=== PATIENT | male | born 1960 | race Caucasian/White ===

== ENCOUNTER 2019-05-12 10:39 | Inpatient (IN) ==
[2019-05-12] MEDS: SODIUM CHLORIDE 0.9% 1000ML 1,000 ML IV SCH ×2 (11:21→19:15)
[2019-05-12] MEDS ORDERED: LORazepam 1 MG/2 ML VIAL IV STA (11:23)
--- NOTE | 2019-05-12 11:35 | XRay Report ---
SINGLE VIEW CHEST CLINICAL HISTORY: Generalized weakness. FINDINGS: An AP, portable, upright chest radiograph is obtained. No prior studies are available for c omparison at the time of dictation. The examination is degraded by portable technique and patient r otation. The patient is status post midline sternotomy and cardiac valve surgery. The heart is enlarg ed noting atherosclerotic calcification of the thoracic aorta. The pulmonary vasculature is nonconges jesus. There is bibasilar atelectasis. No airspace consolidation or large pleural effusion is identifie d. No pneumothorax is seen. The bony thorax is grossly intact. IMPRESSION: Mild cardiomegaly with no active disease in the chest. Electronically signed by: Nabeel St M.D. 05/12/2019 11:33 AM
[2019-05-12 11:41] LABS: INR 1.3 (0.9-1.1); Prothrombin Time 12.8 Seconds (9.0-12.0)
[2019-05-12 11:49] LABS: Alanine Aminotransferase 144 U/L (12-78); Albumin Level 3.9 gm/dl (3.4-5.0); Aspartate Aminotransferase 218 U/L (15-37); BUN Creatinine Ratio 29.4 (10-20); Blood Urea Nitrogen 60 mg/dl (7-18); Calcium 9.6 mg/dl (8.5-10.1); Carbon Dioxide 23 mmol/L (21-32); Chloride 108 mmol/L (98-107); Est GFR (African American) 40.4; Est GFR (Non-African American) 34.9; Glucose 86 mg/dl (70-99); Magnesium 2.3 mg/dl (1.8-2.4); Potassium 4.9 mmol/L (3.5-5.1); Sodium 141 mmol/L (136-145)
[2019-05-12 11:52] LABS: Hematocrit (blood only) 33.3 % (42-52); Hemoglobin 11.4 g/dL (14.0-18.0); Mean Corpuscular Hemoglobin 32.1 pg (25-34); Mean Corpuscular Hgb Conc 34.2 g/dL (32-36); Mean Corpuscular Volume 93.8 fL (80-100); Platelet Count 88 K/uL (130-400); RDW Coefficient of Variation 13.5 % (11.5-14.5); RDW Standard Deviation 46.8 fL (36.4-46.3); Red Blood Count 3.55 M/uL (4.7-6.1); White Blood Count 5.17 K/uL (4.8-10.8)
[2019-05-12 11:53] LABS: Basophils # (auto) 0.01 K/uL (0-0.2); Basophils % (auto) 0.2 %; Eosinophils # (auto) 0.03 K/uL (0-0.5); Eosinophils % (auto) 0.6 %; Immature Granulocytes # (auto) 0.01 K/uL (0.00-0.02); Immature Granulocytes % (auto) 0.2 %; Lymphocytes # (auto) 0.93 K/uL (1.2-3.4); Monocytes # (auto) 0.94 K/uL (0.11-0.59); Monocytes % (auto) 18.2 %; Neutrophils # (auto) 3.25 K/uL (1.4-6.5); Neutrophils % (auto) 62.8 %; Platelet Estimate Decreased (Normal)
[2019-05-12] MEDS ORDERED: SODIUM CHLORIDE 0.9% 1000ML 500 ML IV ONE (11:56)
[2019-05-12 12:00] LABS: Albumin Globulin Ratio 1.1 (0.9-2); Alkaline Phosphatase 120 U/L (45-117); Bilirubin,Total 1.1 mg/dl (0.2-1); Globulin 3.6 gm/dl (2.5-4.0); Total Protein 7.5 gm/dl (6.4-8.2); Troponin I 0.039 ng/ml (0-0.045)
--- NOTE | 2019-05-12 12:13 | CT Scan Report ---
CT head/brain wo con CLINICAL HISTORY: 59 years-old Male presenting with AMS, confusion. TECHNIQUE: Multidetector CT imaging of the head was performed without the use of intravenous contrast . IV contrast: None. One or more dose lowering techniques were used consistent with the principles of ALARA (as low as reasonably achievable), including automatic exposure control, mA or kV adjustment t o individual patient size, and/or use of iterative reconstruction. COMPARISON: None. CT DOSE (mGy.cm): The estimated cumulative dose is 3433.86 mGycm. FINDINGS: [employer] Consultant topogram: Unremarkable. Motion artifact degradation results in mildly decreased diagnostic sensitivity. Ventricles and sulci normal in size. No hemorrhage. Brain parenchyma normal in appearance with preser fili mallory-white differentiation. No acute territorial infarct. No mass effect or midline shift. No ext ra-axial fluid collection. Paranasal sinuses and mastoid air cells clear. Calvarium intact. IMPRESSION: Motion artifact degradation results in mildly decreased diagnostic sensitivity. 1. No acute intracranial abnormality. Electronically signed by: Kj Herbert M.D. 05/12/2019 12:11 PM
[2019-05-12] MEDS ORDERED: LORazepam 0.5 MG/1 ML VIAL IV PRN ×2 (15:26→18:19)
--- NOTE | 2019-05-12 15:31 | History & Physical Report ---
Date of Service May 12, 2019 Assessment & Plan (1) Metabolic encephalopathy: This is a 59-year-old male with a PMH of hep C cirrhosis, liver cancer, CAD (s/p CABG), history of heart valve replacement, bipolar disorder and other medical problems listed below who presents from [facility] with altered mental status since this morning. -Differential includes infection (has received 2 days of Cipro for UTI, hepatic encephalopathy, serotonin syndrome, catatonia -CT head without acute intracranial abnormalities -Afebrile, no leukocytosis. Will stop Cipro and switch to Rocephin. UA, urine culture, blood culture and lactate pending -No known baseline for LFTs. Repeat tomorrow, trend ammonia, continue Lactulose as tolerated -Shivering, confusion, agitation, dilated pupils, muscle rigidity, PVCs concerning for serotonin syndrome. Discussed with psych, who will evaluate the patient today. Also considering catatonia -Recommend symptomatic support with Ativan 0.5mg IV Q6H PRN for agitation as well as holding all psych meds -Continue IV fluids, keep NPO for now until mentation improves, aspiration and fall precautions (2) Bipolar disorder: Likely other underlying psychiatric problems as well but unknown at this time. Patient new to [facility], unable to provide history 2/2 AMS -Holding Haldol, Cogentin and Zoloft for now (3) CAD (coronary artery disease): (4) S/P CABG x 3: Reported history of CABG in 2016, also with reported heart valve replacement -Continue statin. Resume beta judie when tolerating PO -Not on aspirin - will need to further discuss -Paperwork from [facility] states cardiac evaluation is needed (5) Chronic hepatitis C with cirrhosis: (6) Liver cancer: Holding lasix since patient appears clinically dry -Continue lactulose as tolerated -Trend liver panel, INR, ammonia DVT Ppx: SCDs Code status: FULL PCP: CADE Loyd Dispo: Admitted to PCU. Discharge plannnig ordered. Patient seen in collaboration with Dr. Doan. Please see addendum. History of Present Illness Chief Complaint: Altered mental status Primary Care Provider: [facility] [place] This is a 59-year-old male with a PMH of hep C cirrhosis, liver cancer, CAD (s/p CABG), history of heart valve replacement, bipolar disorder and other medical problems listed below who presents from [facility] with altered mental status since this morning. Patient was recently transferred from another alf facility 3 days ago and has seemed confused since. Was evaluated by [facility] and found to have UTI and was started on Cipro yesterday. Ammonia level was 66 at that time. This morning, patient was noted to be less responsive with rigid movements. Was oriented to self but not to time place or situation. Was brought in the ED for further evaluation. History and ROS limited secondary to patient's lethargic state. Per the alf guards at bedside, patient has been mentating similar to this since this morning. After being given 1 mg of IV Ativan in ED, has been more lethargic but still intermittently opens his eyes in response to stimuli, mumbles incoherently and has dystonic movement. Currently afebrile and hemodynamically stable. No electrolyte abnormalities. Creatinine 2.04 (baseline unknown). Ammonia level of 30. Urinalysis, urine tox screen, blood cultures and lactic acid pending. Head CT without any acute intracranial abnormalities. EKG with sinus rhythm with occasional PVCs. Allergies Allergy/AdvReac Type Severity Reaction Status Date / Time No Known Allergies Allergy Unverified 05/12/19 11:58 Home Medications Home Medications Medication Instructions Recorded Confirmed Type atorvastatin 80 mg PO DAILY 05/12/19 05/12/19 History benztropine 2 mg PO HS 05/12/19 05/12/19 History ciprofloxacin HCl [Cipro] 500 mg PO BID 05/12/19 05/12/19 History furosemide [Lasix] 20 mg PO QAM 05/12/19 05/12/19 History haloperidol 10 mg PO HS 05/12/19 05/12/19 History hydroxyzine pamoate 50 mg PO TID PRN 05/12/19 05/12/19 History lactulose 20 g PO BID 05/12/19 05/12/19 History levothyroxine 50 mcg PO DAILY 05/12/19 05/12/19 History meloxicam 15 mg PO DAILY 05/12/19 05/12/19 History metoprolol tartrate 12.5 mg PO BID 05/12/19 05/12/19 History sertraline 50 mg PO DAILY 05/12/19 05/12/19 History Past Med/Surg History Medical History Bipolar disorder (Chronic) CAD (coronary artery disease) (Chronic) Chronic hepatitis C with cirrhosis (Chronic) Liver cancer (Chronic) Surgical History Heart valve replaced S/P CABG x 3 (Chronic) Family History Other Family history unobtainable due to patient's condition Social History Preferred Language: Bahraini Communication Ability Comment: unable to obtain 2/2 patient's altered state Beliefs That Will Affect Care: None Current Living Situation: Other Current Living Situation Comment: alf Feels Safe at Home: Yes Safety Concerns: Feels Safe At This Time Smoking Status: Former smoker Hx Alcohol Use: No Hx Substance Use: No Review of Systems Review of Systems: Unobtainable due to cognitive status Physical Exam Physical Exam: General Appearance: WD/WN, vitals as above, thin, lethargic but intermittently opening eyes and speaking incoherently, shivering, appears thin, chronically ill Head: normocephalic, atraumatic Eyes: pupils dilated with sluggish response to light bilaterally, conjunctivae normal, anicteric sclerae ENT: external ear and nose normal, oropharynx with dry mucous membranes Neck: trachea midline, no thyromegaly normal visual inspection Respiratory: normal respiratory effort, lungs clear to auscultation, no wheeze, rales, rhonchi. Normal insp/exp effort, no accessory muscle use Cardiovascular: regular rate, rhythm, no murmur, normal peripheral pulses. Vessels: no JVD or carotid bruit Chest: normal inspection of chest Abdomen/GI: normal bowel sounds, soft, nontender, no hepatosplenomegaly Extremities/Musculoskelatal: no cyanosis or clubbing, extremities motor strength 5/5 Neurologic: difficult to fully assess due to patient's lethargy and dystonic movements. Moves all extremities spontaneously +rigid body posture Psychiatric: A+O to person, not to time, place or situation. Incoherently sp eaking intermittently Skin: no rashes, normal color, warm/dry Results & Data Vital Signs (Past 12 Hours) Vital Signs Temp Pulse Pulse Resp BP BP Pulse Ox 05/12/19 15:19 76 18 127/86 97 05/12/19 14:31 64 15 99 05/12/19 14:30 64 16 117/75 99 05/12/19 14:15 68 17 122/90 100 05/12/19 14:01 65 16 100 05/12/19 14:00 65 17 113/77 99 05/12/19 13:46 68 18 100 05/12/19 13:45 67 18 120/75 100 05/12/19 13:31 65 15 100 05/12/19 13:30 66 15 106/67 99 05/12/19 13:16 66 16 99 05/12/19 13:15 66 16 103/65 99 05/12/19 13:01 67 16 98 05/12/19 13:00 66 15 103/68 99 05/12/19 12:46 67 17 98 05/12/19 12:45 67 16 101/65 98 05/12/19 12:31 68 19 98 05/12/19 12:30 68 18 102/70 98 05/12/19 12:16 70 17 98 05/12/19 12:15 70 17 115/75 98 05/12/19 12:07 73 21 05/12/19 11:45 73 19 05/12/19 11:30 72 17 113/89 94 05/12/19 11:22 36.9 C 71 18 116/82 100 05/12/19 11:21 70 20 116/82 100 05/12/19 11:15 71 19 96 05/12/19 11:11 100 05/12/19 11:07 74 23 86/68 L 05/12/19 11:03 98 05/12/19 11:01 73 14 90/70 L 05/12/19 11:00 70 21 05/12/19 10:58 70 20 05/12/19 10:45 63 20 101/67 100 Laboratory Results Short CBC 05/12/19 Range/Units 11:20 WBC 5.17 (4.8-10.8) K/uL Hgb 11.4 L (14.0-18.0) g/dL Hct 33.3 L (42-52) % Plt Count 88 L (130-400) K/uL BMP 05/12/19 11:20 Sodium 141 Potassium 4.9 Chloride 108 H Carbon Dioxide 23 BUN 60 H Creatinine 2.04 H Glucose 86 Calcium 9.6 Cardiac Enzymes 05/12/19 Range/Units 11:20 Troponin I 0.039 (0-0.045) ng/ml Liver Function 05/12/19 Range/Units 11:20 Total Bilirubin 1.1 H (0.2-1) mg/dl AST 218 H (15-37) U/L ALT 144 H (12-78) U/L Alkaline Phosphatase 120 H (45-117) U/L Albumin 3.9 (3.4-5.0) gm/dl Urine 05/12/19 Range/Units 15:10 Urine Color Yellow Urine Appearance Clear (Clear) Urine pH 5.0 (4.5-7.5) Ur Specific [place] 1.020 (1.000-1.030) Urine Protein Negative (Negative) Urine Glucose (UA) Negative (Negative) Diagnostic Findings CT head: 1. No acute intracranial abnormality. CXR: IMPRESSION: Mild cardiomegaly with no active disease in the chest. ECG Rhythm: sinus rhythm Findings: + PVC Code Status & VTE Plan VTE Prophylaxis Plan VTE Prophylaxis will be ordered: Yes Supervising Physician Co-Signing Physician Notes Patient is a 59-year-old male with history of hepatitis C, cirrhosis, coronary artery disease, bipolar disorder and other problems presents from [facility] with altered mental status, agitation, dystonic movements. Patient is unable to provide any history secondary to change in mental status. He was recently being treated for urinary tract infection with ciprofloxacin. His ammonia level was [address] head showed no acute findings. Showed thrombocytopenia, anemia, mild elevation of INR 1.3, KIRK with creatinine of 2.04, transaminitis. EKG showed PVCs. Urinalysis showed no signs of UTI but could be partly treated with ciprofloxacin. Currently ammonia levels are within normal limits. On exam patient does lethargic, incoherent speech, chronic ill-appearing, dystonic movements, normocephalic atraumatic, pupils dilated and sluggishly reactive to light, lungs are clear to auscultation, S1-S2, +Murmur, abdomen-voluntary guarding, complete neuro exam could not before performed secondary to altered mental status, Trace pedal edema, grossly moves all extremities. Patient is admitted for management of altered mental status likely secondary to metabolic encephalopathy. DD: Secondary to UTI, medications, hepatic encephalopathy, possibility of serotonin syndrome. Will empirically start on IV Rocephin, IV fluids. Will give Ativan as needed for possible serotonin syndrome. Will consult psychiatry for input. Will hold all antipsychotics/mood stabilizers for now. We will continue lactulose when patient is more awake and able to take p.o. Monitor for platelets, LFTs, INR, renal function. IV fluids to help with KIRK. Aspiration, fall precautions. Consider GI evaluation if LFTs worsen. I personally reviewed the record. Patient is interviewed and examined at bedside. Patient's care is coordinated with Mya Weldon PA-C. Please refer to the documentation above for details of patient's presentation and for discussion of other issues.
[2019-05-12 15:35] LABS: Appearance Urine Clear (Clear); Bilirubin Urine Negative (Negative); Blood Urine Negative (Negative); Color Urine Yellow; Glucose Urine UA Negative (Negative); Ketones Urine Trace (Negative); Leukocyte Esterase Urine Negative (Negative); Nitrite Urine Negative (Negative); Protein Urine Negative (Negative); Urobilinogen Urine Negative (Negative)
--- NOTE | 2019-05-12 15:45 | Psychiatric Consultation ---
Date of Consultation May 12, 2019 Impression / Recommendations Impression 59-year-old male evaluated in the ED after presenting with AMS. Pt is a prisoner at [facility] and was only transferred to their facility in the last 2- 3 days. Limited history is available at this time regarding progression of symptoms or his psychiatric history. Psychiatric consultation was requested to evaluate patient for AMS. Serotonin syndrome was questioned by primary team, and while he has several symptoms (restlessness, confusion, possible hallucinations, and "shivering") these symptoms are somewhat nonspecific and may also be related to other etiology. Fortunately, patient is not demonstrating hypertension, tachycardia, hyperthermia, or other more specific signs of serotonin syndrome or NMS. Agitated catatonia was also considered, though symptoms did not improve after being provided with 1mg of lorazepam in the ED. His symptoms are not presenting as consistent with an acute destabilization of a mood disorder. Medication overdose should be considered on the differential, though it is not clear if the patient would have had access to a surplus of medications at these correctional facilities. His toxicology screening was also positive for MDMA - it is not entirely clear if this may be a false positive, but the possibility of substance use should be considered as well. At this time, delirium/encephalopathy seems the most likely explanation for his symptoms, deferring further work-up and treatment to primary team. Would recommend holding all psychotropic medications until further information on his condition can be obtained. It would likely be suggested to resume medications prior to discharge back to [facility], unless etiology of AMS is related to adverse medication reactions. Seems appropriate to offer lorazepam as needed for acute agitation, while continuing medical work-up for possible medical causes to explain AMS. We will continue to follow patient's case and are available for any additional questions or concerns. Will attempt to gather collateral information regarding the progression of these symptoms. We appreciate the opportunity to participate in the care of this patient. Dr. Rayne Anderson was directly involved in review and discussion of the patient's case and participated in medical decision making regarding treatment recommendations. Psych History Identifying Data Rudolph Barrera is 59-year-old male evaluated in the ED for AMS with concern for serotonin syndrome. He is a prisoner recently transferred to [facility] from [facility] within the past 2-3 days. He reportedly presented as altered from the [facility] facility, but was brought to the ED after AMS worsened. Psychiatric consultation was requested to evaluate patient for possible seroton in syndrome. Pt is unable to provide reliable history of his own, additional information is rather limited presently. Chief Complaint "Well hello there." History of Present Illness Rudolph Barrera is a 59-year-old male evaluated in the ED after presenting from [facility] with reports of AMS. Pt is anticipated to be admitted medically for further work-up and treatment of AMS. Psychiatric consultation was requested to evaluate patient for possible serotonin syndrome. Patient's case and available information was reviewed by consulting provider at time of consult request. It is reported that patient has been altered since his transfer to [facility] from [facility]. Reports of "dystonia, dilated pupils, rigidity, and shivering" were reported, with concern for possible adverse medication reaction. Medication list of haloperidol 10mg qHS, benztropine 2mg qHS, and sertraline 50mg daily was reviewed. It is unclear if there have been any recent changes to his medication. Pt is also being treated for a UTI at this time. Any additional history is rather limited at this time. He was given 1mg of lorazepam in the ED, which reportedly made him "more lethargic." Pt was evaluated by this provider in the ED prior to his transfer to the medical floor. Pt initially presented as alert and pleasant, recognizing this provider's presence in the room and greeting her appropriately. Pt was asked how he is doing, and responded with mumbling and rambling of unintelligible speech. Pt was asked numerous questions, but was unable to provider productive responses. He would ramble while questions were being asked, and later in conversation seemed to be less aware of our conversation. He remained intermittently engaged in our conversation, but was unable to provide any personal history. Limited supplemental information was gathered from the correctional officers present in his room. They state the patient was transferred to their facility from [facility] in the past 2-3 days. He presented to their facility as altered, with no clear history provided to explain this. They report he has been in a private cell, and was placed on suicide watch with q15 minute observation checks after he reported seeing 4 other individuals and his dog in the cell with him. Pt did not verbalize any suicidal or homicidal statements at the facility, and reportedly did not demonstrate any self-harm behaviors. They state the patient would not have had access to large amounts of medication while in their facility, but they cannot speak to how medications were provided at his previous facility. They state that he is being treated for a UTI, but there was also a reported history of " bipolar disorder, and maybe schizophrenia?" Pt is unable to provide any insight regarding his current psychiatric needs or history of treatment/diagnoses. Past Psychiatric History Previous Psych History: No available history presently. It is reported that patient may have a diagnosis of bipolar disorder, but otherwise his psychiatric history is uncertain Current Psychiatric Diagnosis: Possible bipolar disorder Past Medication Trials: 1. Haloperidol 2. Cogentin 3. Zoloft Allergies Allergy/AdvReac Type Severity Reaction Status Date / Time No Known Allergies Allergy Unverified 05/12/19 11:58 Home Medications Home Medications Medication Instructions Recorded Confirmed Type atorvastatin 80 mg PO DAILY 05/12/19 05/12/19 History benztropine 2 mg PO HS 05/12/19 05/12/19 History ciprofloxacin HCl [Cipro] 500 mg PO BID 05/12/19 05/12/19 History furosemide [Lasix] 20 mg PO QAM 05/12/19 05/12/19 History haloperidol 10 mg PO HS 05/12/19 05/12/19 History hydroxyzine pamoate 50 mg PO TID PRN 05/12/19 05/12/19 History lactulose 20 g PO BID 05/12/19 05/12/19 History levothyroxine 50 mcg PO DAILY 05/12/19 05/12/19 History meloxicam 15 mg PO DAILY 05/12/19 05/12/19 History metoprolol tartrate 12.5 mg PO BID 05/12/19 05/12/19 History sertraline 50 mg PO DAILY 05/12/19 05/12/19 History Personal History Living Arrangements: [facility] - recent transfer Patient History Medical History Bipolar disorder (Chronic) CAD (coronary artery disease) (Chronic) Chronic hepatitis C with cirrhosis (Chronic) Liver cancer (Chronic) Surgical History Heart valve replaced S/P CABG x 3 (Chronic) Family History Other Family history unobtainable due to patient's condition Social History Preferred Language: Salvadorean Communication Ability Comment: unable to obtain 2/2 patient's altered state Beliefs That Will Affect Care: None Current Living Situation: Other Current Living Situation Comment: [facility] Feels Safe at Home: Yes Safety Concerns: Feels Safe At This Time Smoking Status: Former smoker Hx Alcohol Use: No Hx Substance Use: No Physical Exam Psychiatric: Orientation: alert (confused and disoriented) Apperance: appropriately dressed (in hospital gown), appropriately groomed and appeared stated age Thin-appearing male observed while laying in bed. Wearing hospital gown. Hair and stanley are short, and white. Level of hygiene appears adequate. Eye Contact: + poor eye contact (brief direct eye contact while alert, eyes closed for majority of visit) Motor Behavior: + tremor (fine tremor observed, with spastic movements of body periodically); + abnormal motor movements Pt is observed while laying in bed. Brief moments of relaxation while appearing calm, alternating with intermittent spastic movements of various body parts. Pt is able to relax body when directed to. No evidence of cogwheel rigidity or sustained dystonia. Pt is observed at times to be reaching for things not present or demonstrating other odd movements, but nothing clearly goal directed in nature. Periodically, patient is observed to be attempting to sit up, but then relaxes himself again. Difficulty adequately assessing reflexes due to spasticity of movements. Speech: + abnormal rate/rhythm/volume of speech (speech is rambling in nature, soft, often unintelligible) Thought Process: + thought process not goal directed (thought process seems disorganized) Thought process difficult to assess given predominantly unintelligible speech Pt appears to be responding to internal stimuli - had reported VH of 4 people and his dog in his cell prior to admission. No current confirmation of A/V hallucinations Insight: + severely impaired insight Judgement: + severely impaired judgement Vital Signs (Past 24 Hours): Last Vital Signs Temp 36.9 C 05/12/19 11:22 Pulse 76 05/12/19 15:19 Resp 18 05/12/19 15:19 BP 127/86 05/12/19 15:19 Pulse Ox 97 05/12/19 15:19 Review of Systems Pt is unable to participate productively with review of systems Results & Data Medications Administered Sodium Chloride (Nss 1000ml) 1,000 mls @ 125 mls/hr IV .Q8H [id number] Stop: 06/11/19 11:14 Last Infusion: 05/12/19 13:02 Dose: 125 mls/hr Documented by: [id number] Infusion: 05/12/19 12:19 Dose: 0 mls/hr Documented by: [id number] Admin: 05/12/19 11:21 Dose: 125 mls/hr Documented by: [id number] Coding Level of Care Code 82550 [facility] Intl Hosp Care Lvl 2
[2019-05-12 16:01] LABS: Amphetamines+Metham, Urine Neg (Neg); Barbiturates, Urine Neg (Neg); Benzodiazepine, Urine Neg (Neg); Cocaine, Urine Neg (Neg); MDMA (Ecstacy), Urine Pos (Neg); Methadone, Urine Neg (Neg); Opiate, Urine Neg (Neg); Phencyclidine, Urine Neg (Neg)
[2019-05-12] MEDS ORDERED: PATIENT'S HEIGHT AND/OR WEIGHT NEEDED SCH (16:45)
--- NOTE | 2019-05-12 18:08 | Emergency Department Note ---
Entered by Pamela Menjivar acting as a scribe for History of Present Illness General Chief complaint: Altered Mental Status Stated complaint: AMS Source: patient and other (Longterm) History of Present Illness Onset (ago): day(s) (3) Location: head (general) Quality: + other (altered mental status) The patient is a 59 year old male who presents to the Emergency Room with complaints of an altered mental status first noticed 3 days ago upon [facility]. The custodial reports the patient was recently started on Cipro in the past 2 days. The custodial reports the patient has a history of Hepatitis C and liver cancer. HPI limited due to altered mental status and limited knowledge of pt by guards present. Home Medications Home Medications Medication Instructions Recorded Confirmed Type atorvastatin 80 mg PO DAILY 05/12/19 05/12/19 History benztropine 2 mg PO HS 05/12/19 05/12/19 History ciprofloxacin HCl [Cipro] 500 mg PO BID 05/12/19 05/12/19 History furosemide [Lasix] 20 mg PO QAM 05/12/19 05/12/19 History haloperidol 10 mg PO HS 05/12/19 05/12/19 History hydroxyzine pamoate 50 mg PO TID PRN 05/12/19 05/12/19 History lactulose 20 g PO BID 05/12/19 05/12/19 History levothyroxine 50 mcg PO DAILY 05/12/19 05/12/19 History meloxicam 15 mg PO DAILY 05/12/19 05/12/19 History metoprolol tartrate 12.5 mg PO BID 05/12/19 05/12/19 History sertraline 50 mg PO DAILY 05/12/19 05/12/19 History Allergies Allergy/AdvReac Type Severity Reaction Status Date / Time No Known Allergies Allergy Unverified 05/12/19 11:58 Past Med/Surg History Medical History Bipolar disorder (Chronic) CAD (coronary artery disease) (Chronic) Chronic hepatitis C with cirrhosis (Chronic) Liver cancer (Chronic) Surgical History Heart valve replaced S/P CABG x 3 (Chronic) Family History Other Family history unobtainable due to patient's condition Social History Preferred Language: French Communication Ability Comment: unable to obtain 2/2 patient's altered state Beliefs That Will Affect Care: None Current Living Situation: Other Current Living Situation Comment: custodial Feels Safe at Home: Yes Safety Concerns: Feels Safe At This Time Smoking Status: Former smoker Hx Alcohol Use: No Hx Substance Use: No Review of Systems Unobtainable due to cognitive status (AMS) Physical Exam Vital Signs Vital Signs - 24 hr 05/12/19 10:45 05/12/19 10:58 05/12/19 11:00 Temperature Temperature Source Pulse Rate 63 70 70 Pulse Rate [Finger] Pulse Rate from SpO2 Sensor Respiratory Rate 20 20 21 Respiratory Effort / Characteristics Blood Pressure 101/67 Blood Pressure [Left Arm] Blood Pressure Mean 78 Blood Pressure Mean [Left Arm] Pulse Oximetry 100 Oxygen Delivery Method Room Air Sepsis Recent Fever Within 48 Hours No Sepsis New/Unexplained Change in Mental Status Yes Sepsis Action Taken by Nursing No Action Required 05/12/19 11:01 05/12/19 11:03 05/12/19 11:07 Temperature Temperature Source Pulse Rate 73 74 Pulse Rate [Finger] Pulse Rate from SpO2 Sensor 72 Respiratory Rate 14 23 Respiratory Effort / Characteristics Blood Pressure 90/70 L 86/68 L Blood Pressure [Left Arm] Blood Pressure Mean 75 70 Blood Pressure Mean [Left Arm] Pulse Oximetry 98 Oxygen Delivery Method Room Air Sepsis Recent Fever Within 48 Hours Sepsis New/Unexplained Change in Mental Status Sepsis Action Taken by Nursing 05/12/19 11:11 05/12/19 11:15 05/12/19 11:21 Temperature Temperature Source Pulse Rate 71 70 Pulse Rate [Finger] Pulse Rate from SpO2 Sensor 71 71 Respiratory Rate 19 20 Respiratory Effort / Characteristics Blood Pressure 116/82 Blood Pressure [Left Arm] Blood Pressure Mean 87 Blood Pressure Mean [Left Arm] Pulse Oximetry 100 96 100 Oxygen Delivery Method Room Air Sepsis Recent Fever Within 48 Hours Sepsis New/Unexplained Change in Mental Status Sepsis Action Taken by Nursing 05/12/19 11:22 05/12/19 11:30 05/12/19 11:45 Temperature 36.9 C Temperature Source Oral Pulse Rate 72 73 Pulse Rate [Finger] 71 Pulse Rate from SpO2 Sensor 70 Respiratory Rate 18 17 19 Respiratory Effort / Characteristics Blood Pressure 113/89 Blood Pressure [Left Arm] 116/82 Blood Pressure Mean 100 Blood Pressure Mean [Left Arm] 93 Pulse Oximetry 100 94 Oxygen Delivery Method Room Air Sepsis Recent Fever Within 48 Hours Sepsis New/Unexplained Change in Mental Status Sepsis Action Taken by Nursing 05/12/19 12:07 05/12/19 12:15 05/12/19 12:16 Temperature Temperature Source Pulse Rate 73 70 70 Pulse Rate [Finger] Pulse Rate from SpO2 Sensor 70 70 Respiratory Rate 21 17 17 Respiratory Effort / Characteristics Blood Pressure 115/75 Blood Pressure [Left Arm] Blood Pressure Mean 89 Blood Pressure Mean [Left Arm] Pulse Oximetry 98 98 Oxygen Delivery Method Sepsis Recent Fever Within 48 Hours Sepsis New/Unexplained Change in Mental Status Sepsis Action Taken by Nursing 05/12/19 12:30 05/12/19 12:31 05/12/19 12:45 Temperature Temperature Source Pulse Rate 68 68 67 Pulse Rate [Finger] Pulse Rate from SpO2 Sensor 68 68 67 Respiratory Rate 18 19 16 Respiratory Effort / Characteristics Blood Pressure 102/70 101/65 Blood Pressure [Left Arm] Blood Pressure Mean 74 74 Blood Pressure Mean [Left Arm] Pulse Oximetry 98 98 98 Oxygen Delivery Method Sepsis Recent Fever Within 48 Hours Sepsis New/Unexplained Change in Mental Status Sepsis Action Taken by Nursing 05/12/19 12:46 05/12/19 13:00 05/12/19 13:01 Temperature Temperature Source Pulse Rate 67 66 67 Pulse Rate [Finger] Pulse Rate from SpO2 Sensor 67 66 67 Respiratory Rate 17 15 16 Respiratory Effort / Characteristics Blood Pressure 103/68 Blood Pressure [Left Arm] Blood Pressure Mean 81 Blood Pressure Mean [Left Arm] Pulse Oximetry 98 99 98 Oxygen Delivery Method Sepsis Recent Fever Within 48 Hours Sepsis New/Unexplained Change in Mental Status Sepsis Action Taken by Nursing 05/12/19 13:15 05/12/19 13:16 05/12/19 13:30 Temperature Temperature Source Pulse Rate 66 66 66 Pulse Rate [Finger] Pulse Rate from SpO2 Sensor 66 66 66 Respiratory Rate 16 16 15 Respiratory Effort / Characteristics Blood Pressure 103/65 106/67 Blood Pressure [Left Arm] Blood Pressure Mean 75 74 Blood Pressure Mean [Left Arm] Pulse Oximetry 99 99 99 Oxygen Delivery Method Sepsis Recent Fever Within 48 Hours Sepsis New/Unexplained Change in Mental Status Sepsis Action Taken by Nursing 05/12/19 13:31 05/12/19 13:45 05/12/19 13:46 Temperature Temperature Source Pulse Rate 65 67 68 Pulse Rate [Finger] Pulse Rate from SpO2 Sensor 65 67 68 Respiratory Rate 15 18 18 Respiratory Effort / Characteristics Blood Pressure 120/75 Blood Pressure [Left Arm] Blood Pressure Mean 84 Blood Pressure Mean [Left Arm] Pulse Oximetry 100 100 100 Oxygen Delivery Method Sepsis Recent Fever Within 48 Hours Sepsis New/Unexplained Change in Mental Status Sepsis Action Taken by Nursing 05/12/19 14:00 05/12/19 14:01 05/12/19 14:15 Temperature Temperature Source Pulse Rate 65 65 68 Pulse Rate [Finger] Pulse Rate from SpO2 Sensor 65 64 67 Respiratory Rate 17 16 17 Respiratory Effort / Characteristics Blood Pressure 113/77 122/90 Blood Pressure [Left Arm] Blood Pressure Mean 90 95 Blood Pressure Mean [Left Arm] Pulse Oximetry 99 100 100 Oxygen Delivery Method Sepsis Recent Fever Within 48 Hours Sepsis New/Unexplained Change in Mental Status Sepsis Action Taken by Nursing 05/12/19 14:30 05/12/19 14:31 05/12/19 15:19 Temperature Temperature Source Pulse Rate 64 64 Pulse Rate [Finger] 76 Pulse Rate from SpO2 Sensor 64 64 Respiratory Rate 16 15 18 Respiratory Effort / Characteristics Non-Labored Blood Pressure 117/75 Blood Pressure [Left Arm] 127/86 Blood Pressure Mean 92 Blood Pressure Mean [Left Arm] 99 Pulse Oximetry 99 99 97 Oxygen Delivery Method Room Air Sepsis Recent Fever Within 48 Hours Sepsis New/Unexplained Change in Mental Status Sepsis Action Taken by Nursing Vital signs reviewed. General: Well-appearing middle-aged male, in no significant distress. HEENT: Dilated pupils bilaterally, 4mm, sluggishly reactive. Dry mucous membranes. No scleral icterus neck supple. Atraumatic. Cardiovascular: Regular rate and rhythm, no extra sounds. Pulmonary: Clear to auscultation bilaterally, normal work of breathing. Abdomen: Soft, nontender, nondistended, positive bowel sounds. Musculoskeletal: Atraumatic, no peripheral edema. Neurologic: Patient awake alert. Hallucinating and grabbing at air; re- directable but unable to follow commands. Full strength in all 4 extremities. Skin: Warm, dry, no rash Course Course 1100: Past medical records reviewed. The patient was evaluated in room C07. A complete history and physical exam was performed. 1407: Upon reevaluation, the patient was resting more comfortably, 1430: Upon reevaluation, I discussed findings and results with the patient and the custodial guards. They verbalized agreement of the treatment plan. I spoke with Dr. Mya Weldon PA-C. The patient will be furthered evaluated [facility] The patient will be evaluated for further management and care. Administered Medications Atorvastatin Calcium (Lipitor) 80 mg PO QAM [facility] Stop: 06/14/19 12:59 Last Admin: 05/15/19 15:04 Dose: 80 mg Documented by: [id number] Furosemide (Lasix) 20 mg PO QAM [facility] Stop: 06/13/19 10:59 Last Admin: 05/15/19 08:54 Dose: Not Given Documented by: [id number] Admin: 05/14/19 11:52 Dose: 20 mg Documented by: [id number] Sodium Chloride (Nss 1000ml) 1,000 mls @ 60 mls/hr IV .[id number] IGNACIO Stop: 06/14/19 13:59 Last Admin: 05/15/19 15:02 Dose: 60 mls/hr Documented by: [id number] Ioversol (Optiray 320 100ml) 94 ml IV ONCE PRN PRN Reason: Interaction Checking Stop: 05/19/19 14:37 Last Admin: 05/15/19 14:38 Dose: 94 ml Documented by: [id number] Ketorolac Tromethamine (Toradol) 15 mg IV Q6H PRN PRN Reason: Pain Stop: 05/20/19 13:54 Last Admin: 05/15/19 15:02 Dose: 15 mg Documented by: [id number] Lactulose (Chronulac) 20 gm PO BID IGNACIO Stop: 06/11/19 20:59 Last Admin: 05/15/19 08:53 Dose: 20 gm Documented by: [id number] Admin: 05/14/19 22:00 Dose: 20 gm Documented by: [id number] Admin: 05/13/19 10:26 Dose: Not Given Documented by: [id number] Admin: 05/12/19 20:10 Dose: Not Given Documented by: [id number] Levothyroxine Sodium (Synthroid) 50 mcg PO DAILYBB [facility] Stop: 06/15/19 06:29 Last Admin: 05/16/19 05:35 Dose: Not Given Documented by: [id number] Metoprolol Tartrate (Lopressor) 12.5 mg PO BID IGNACIO Stop: 06/14/19 12:59 Last Admin: 05/15/19 20:46 Dose: 12.5 mg Documented by: [id number] Admin: 05/15/19 15:04 Dose: 12.5 mg Documented by: [id number] Polyethylene Glycol (Miralax Powder Packet) 17 gm PO Q12 IGNACIO Stop: 06/14/19 15:29 Last Admin: 05/15/19 16:05 Dose: 17 gm Documented by: [id number] Sennosides (Senokot) 8.6 mg PO QAM [facility] Stop: 06/14/19 15:14 Last Admin: 05/15/19 16:06 Dose: 8.6 mg Documented by: [id number] Discontinued Medications Al Hydrox/Mg Hydrox/Simethicone (Maalox) 15 ml PO NOW STA Stop: 05/15/19 12:54 Last Admin: 05/15/19 12:59 Dose: 15 ml Documented by: [id number] Sodium Chloride (Nss 1000ml) 1,000 mls @ 125 mls/hr IV .Q8H IGNACIO Stop: 06/11/19 11:14 Last Admin: 05/13/19 08:19 Dose: Not Given Documented by: [id number] Infusion: 05/13/19 08:19 Dose: 0 mls/hr Documented by: [id number] Infusion: 05/12/19 20:45 Dose: 125 mls/hr Documented by: [id number] Infusion: 05/12/19 20:13 Dose: 0 mls/hr Documented by: [id number] Admin: 05/12/19 19:15 Dose: 125 mls/hr Documented by: [id number] Infusion: 05/12/19 19:15 Dose: 0 mls/hr Documented by: [id number] Infusion: 05/12/19 13:02 Dose: 125 mls/hr Documented by: [id number] Infusion: 05/12/19 12:19 Dose: 0 mls/hr Documented by: [id number] Admin: 05/12/19 11:21 Dose: 125 mls/hr Documented by: [id number] Lorazepam (Ativan) 1 mg in 2 mls @ 2 mls/min IV PRN STA Stop: 05/12/19 11:24 Last Admin: 05/12/19 11:30 Dose: 2 mls/min Documented by: [id number] Sodium Chloride (Nss 1000ml) 500 mls @ 999 mls/hr IV .Q31M ONE Stop: 05/12/19 12:26 Last Infusion: 05/12/19 13:02 Dose: 0 mls/hr Documented by: [id number] Admin: 05/12/19 12:19 Dose: 999 mls/hr Documented by: [id number] Lorazepam (Ativan) 0.5 mg in 1 mls @ 1 mls/min IV Q6H PRN PRN Reason: Agitation Stop: 06/11/19 15:25 Last Admin: 05/12/19 18:04 Dose: 1 mls/min Documented by: [id number] Ceftriaxone Sodium 1,000 mg/ (Dextrose) 50 mls @ 100 mls/hr IV Q24H IGNACIO; Protocol Stop: 05/17/19 17:29 Last Infusion: 05/13/19 16:21 Dose: 0 mls/hr Documented by: [id number] Admin: 05/13/19 16:04 Dose: 100 mls/hr Documented by: [id number] Infusion: 05/12/19 20:45 Dose: 0 mls/hr Documented by: [id number] Admin: 05/12/19 20:13 Dose: 100 mls/hr Documented by: [id number] Sodium Chloride (Nss 1000ml) 1,000 mls @ 80 mls/hr IV .[id number] IGNACIO Stop: 06/12/19 08:14 Last Infusion: 05/14/19 11:09 Dose: 0 mls/hr Documented by: [id number] Admin: 05/14/19 08:03 Dose: 80 mls/hr Documented by: [id number] Infusion: 05/14/19 08:03 Dose: 80 mls/hr Documented by: [id number] Admin: 05/13/19 20:02 Dose: 80 mls/hr Documented by: [id number] Infusion: 05/13/19 20:02 Dose: 80 mls/hr Documented by: [id number] Admin: 05/13/19 08:18 Dose: 80 mls/hr Documented by: [id number] Miscellaneous (Patient's Height And/Or Weight Needed) 1 ea N/A Q2H IGNACIO Stop: 05/12/19 18:46 Last Admin: 05/12/19 19:03 Dose: Not Given Documented by: [id number] Medical Decision Making Differential Diagnosis Differential diagnosis: Etiologies such as metabolic, infection, hypoglycemia, electrolyte abnormalities, cardiac sources, intracerebral event, toxicologic, neurologic, as well as others were entertained. Medical Records Attestation: I reviewed the patient's medical records. Home Medications Current Medication List: was personally reviewed by me Laboratory Data Attestation: I reviewed the patient's lab results. Result diagrams: 05/14/19 06:28 05/15/19 06:44 Lab Results 05/12/19 05/12/19 05/12/19 Range/Units 10:57 11:20 11:20 WBC (4.8-10.8) K/uL RBC (4.7-6.1) M/uL Hgb (14.0-18.0) g/dL Hct (42-52) % MCV (80-100) fL MCH (25-34) pg MCHC (32-36) g/dL RDW Std Deviation (36.4-46.3) fL RDW Coeff of Sue (11.5-14.5) % Plt Count (130-400) K/uL MPV (7.4-10.4) fL Immature Gran % (Auto) % Neut % (Auto) % Lymph % (Auto) % [place] % (Auto) % Eos % (Auto) % Baso % (Auto) % Immature Gran # (Auto) (0.00-0.02) K/uL Neut # (Auto) (1.4-6.5) K/uL Lymph # (Auto) (1.2-3.4) K/uL [place] # (Auto) (0.11-0.59) K/uL Eos # (Auto) (0-0.5) K/uL Baso # (Auto) (0-0.2) K/uL Platelet Estimate (Normal) PT 12.8 H (9.0-12.0) Seconds INR 1.3 H (0.9-1.1) Sodium (136-145) mmol/L Potassium (3.5-5.1) mmol/L Chloride (98-107) mmol/L Carbon Dioxide (21-32) mmol/L Anion Gap (3-11) BUN (7-18) mg/dl Creatinine (0.6-1.4) mg/dl Est Cr Clr Drug Dosing Est GFR ( Amer) Est GFR (Non-Af Amer) BUN/Creatinine Ratio (10-20) Glucose (70-99) mg/dl POC Glucose 128 H (70-99) Lactate 1.3 (0.4-2.0) mmol/L Calcium (8.5-10.1) mg/dl Magnesium (1.8-2.4) mg/dl Total Bilirubin (0.2-1) mg/dl AST (15-37) U/L ALT (12-78) U/L Alkaline Phosphatase (45-117) U/L Ammonia (11-32) umol/L Troponin I (0-0.045) ng/ml Total Protein (6.4-8.2) gm/dl Albumin (3.4-5.0) gm/dl Globulin (2.5-4.0) gm/dl Albumin/Globulin Ratio (0.9-2) TSH (0.300-4.500) uIu/ml Urine Color Urine Appearance (Clear) Urine pH (4.5-7.5) Ur Specific [place] (1.000-1.030) Urine Protein (Negative) Urine Glucose (UA) (Negative) Urine Ketones (Negative) Urine Blood (Negative) Urine Nitrite (Negative) Urine Bilirubin (Negative) Urine Urobilinogen (Negative) Ur Leukocyte Esterase (Negative) Urine Opiates Screen (Neg) Ur Methadone, Qual (Neg) Urine Barbiturates (Neg) Ur Phencyclidine (PCP) (Neg) U Amphetamin/Meth Scrn (Neg) MDMA (Ecstasy) Screen (Neg) U Benzodiazepines Scrn (Neg) Ur Cocaine Metabolite (Neg) U Marijuana (THC) Screen (Neg) 05/12/19 05/12/19 05/12/19 Range/Units 11:20 11:20 11:20 WBC 5.17 (4.8-10.8) K/uL RBC 3.55 L (4.7-6.1) M/uL Hgb 11.4 L (14.0-18.0) g/dL Hct 33.3 L (42-52) % MCV 93.8 (80-100) fL MCH 32.1 (25-34) pg MCHC 34.2 (32-36) g/dL RDW Std Deviation 46.8 H (36.4-46.3) fL RDW Coeff of Sue 13.5 (11.5-14.5) % Plt Count 88 L (130-400) K/uL MPV 11.0 H (7.4-10.4) fL Immature Gran % (Auto) 0.2 % Neut % (Auto) 62.8 % Lymph % (Auto) 18.0 % [place] % (Auto) 18.2 % Eos % (Auto) 0.6 % Baso % (Auto) 0.2 % Immature Gran # (Auto) 0.01 (0.00-0.02) K/uL Neut # (Auto) 3.25 (1.4-6.5) K/uL Lymph # (Auto) 0.93 L (1.2-3.4) K/uL [place] # (Auto) 0.94 H (0.11-0.59) K/uL Eos # (Auto) 0.03 (0-0.5) K/uL Baso # (Auto) 0.01 (0-0.2) K/uL Platelet Estimate Decreased L (Normal) PT (9.0-12.0) Seconds INR (0.9-1.1) Sodium 141 (136-145) mmol/L Potassium 4.9 (3.5-5.1) mmol/L Chloride 108 H (98-107) mmol/L Carbon Dioxide 23 (21-32) mmol/L Anion Gap 10.0 (3-11) BUN 60 H (7-18) mg/dl Creatinine 2.04 H (0.6-1.4) mg/dl Est Cr Clr Drug Dosing Not Reportable Est GFR ( Amer) 40.4 Est GFR (Non-Af Amer) 34.9 BUN/Creatinine Ratio 29.4 H (10-20) Glucose 86 (70-99) mg/dl POC Glucose (70-99) Lactate (0.4-2.0) mmol/L Calcium 9.6 (8.5-10.1) mg/dl Magnesium 2.3 (1.8-2.4) mg/dl Total Bilirubin 1.1 H (0.2-1) mg/dl AST 218 H (15-37) U/L ALT 144 H (12-78) U/L Alkaline Phosphatase 120 H (45-117) U/L Ammonia 30.0 (11-32) umol/L Troponin I 0.039 (0-0.045) ng/ml Total Protein 7.5 (6.4-8.2) gm/dl Albumin 3.9 (3.4-5.0) gm/dl Globulin 3.6 (2.5-4.0) gm/dl Albumin/Globulin Ratio 1.1 (0.9-2) TSH 2.880 (0.300-4.500) uIu/ml Urine Color Urine Appearance (Clear) Urine pH (4.5-7.5) Ur Specific [place] (1.000-1.030) Urine Protein (Negative) Urine Glucose (UA) (Negative) Urine Ketones (Negative) Urine Blood (Negative) Urine Nitrite (Negative) Urine Bilirubin (Negative) Urine Urobilinogen (Negative) Ur Leukocyte Esterase (Negative) Urine Opiates Screen (Neg) Ur Methadone, Qual (Neg) Urine Barbiturates (Neg) Ur Phencyclidine (PCP) (Neg) U Amphetamin/Meth Scrn (Neg) MDMA (Ecstasy) Screen (Neg) U Benzodiazepines Scrn (Neg) Ur Cocaine Metabolite (Neg) U Marijuana (THC) Screen (Neg) 05/12/19 05/12/19 Range/Units 15:10 15:10 WBC (4.8-10.8) K/uL RBC (4.7-6.1) M/uL Hgb (14.0-18.0) g/dL Hct (42-52) % MCV (80-100) fL MCH (25-34) pg MCHC (32-36) g/dL RDW Std Deviation (36.4-46.3) fL RDW Coeff of Sue (11.5-14.5) % Plt Count (130-400) K/uL MPV (7.4-10.4) fL Immature Gran % (Auto) % Neut % (Auto) % Lymph % (Auto) % [place] % (Auto) % Eos % (Auto) % Baso % (Auto) % Immature Gran # (Auto) (0.00-0.02) K/uL Neut # (Auto) (1.4-6.5) K/uL Lymph # (Auto) (1.2-3.4) K/uL [place] # (Auto) (0.11-0.59) K/uL Eos # (Auto) (0-0.5) K/uL Baso # (Auto) (0-0.2) K/uL Platelet Estimate (Normal) PT (9.0-12.0) Seconds INR (0.9-1.1) Sodium (136-145) mmol/L Potassium (3.5-5.1) mmol/L Chloride (98-107) mmol/L Carbon Dioxide (21-32) mmol/L Anion Gap (3-11) BUN (7-18) mg/dl Creatinine (0.6-1.4) mg/dl Est Cr Clr Drug Dosing Est GFR ( Amer) Est GFR (Non-Af Amer) BUN/Creatinine Ratio (10-20) Glucose (70-99) mg/dl POC Glucose (70-99) Lactate (0.4-2.0) mmol/L Calcium (8.5-10.1) mg/dl Magnesium (1.8-2.4) mg/dl Total Bilirubin (0.2-1) mg/dl AST (15-37) U/L ALT (12-78) U/L Alkaline Phosphatase (45-117) U/L Ammonia (11-32) umol/L Troponin I (0-0.045) ng/ml Total Protein (6.4-8.2) gm/dl Albumin (3.4-5.0) gm/dl Globulin (2.5-4.0) gm/dl Albumin/Globulin Ratio (0.9-2) TSH (0.300-4.500) uIu/ml Urine Color Yellow Urine Appearance Clear (Clear) Urine pH 5.0 (4.5-7.5) Ur Specific [place] 1.020 (1.000-1.030) Urine Protein Negative (Negative) Urine Glucose (UA) Negative (Negative) Urine Ketones Trace H (Negative) Urine Blood Negative (Negative) Urine Nitrite Negative (Negative) Urine Bilirubin Negative (Negative) Urine Urobilinogen Negative (Negative) Ur Leukocyte Esterase Negative (Negative) Urine Opiates Screen Neg (Neg) Ur Methadone, Qual Neg (Neg) Urine Barbiturates Neg (Neg) Ur Phencyclidine (PCP) Neg (Neg) U Amphetamin/Meth Scrn Neg (Neg) MDMA (Ecstasy) Screen Pos H (Neg) U Benzodiazepines Scrn Neg (Neg) Ur Cocaine Metabolite Neg (Neg) U Marijuana (THC) Screen Neg (Neg) Imaging Data Radiologist's Impression: Radiology results as stated below per my review and the radiologist's interpretation: CT head/brain wo con CLINICAL HISTORY: 59 years-old Male presenting with AMS, confusion. TECHNIQUE: Multidetector CT imaging of the head was performed without the use of intravenous contrast. IV contrast: None. One or more dose lowering techniques were used consistent with the principles of ALARA (as low as reasonably a chievable), including automatic exposure control, mA or kV adjustment to individual patient size, and/or use of iterative reconstruction. COMPARISON: None. CT DOSE (mGy.cm): The estimated cumulative dose is 3433.86 mGycm. FINDINGS: Senior Cytogenetic Technologist topogram: Unremarkable. Motion artifact degradation results in mildly decreased diagnostic sensitivity. Ventricles and sulci normal in size. No hemorrhage. Brain parenchyma normal in appearance with preserved mallory-white differentiation. No acute territorial infarct. No mass effect or midline shift. No extra-axial fluid collection. Paranasal sinuses and mastoid air cells clear. Calvarium intact. IMPRESSION: Motion artifact degradation results in mildly decreased diagnostic sensitivity. 1. No acute intracranial abnormality. Electronically signed by: Kj Herbert M.D. 05/12/2019 12:11 PM SINGLE VIEW CHEST CLINICAL HISTORY: Generalized weakness. FINDINGS: An AP, portable, upright chest radiograph is obtained. No prior studies are available for comparison at the time of dictation. The examination is degraded by portable technique and patient rotation. The patient is status post midline sternotomy and cardiac valve surgery. The heart is enlarged noting atherosclerotic calcification of the thoracic aorta. The pulmonary vasculature is noncongested. There is bibasilar atelectasis. No airspace consolidation or large pleural effusion is identified. No pneumothorax is seen. The bony thorax is grossly intact. IMPRESSION: Mild cardiomegaly with no active disease in the chest. Electronically signed by: Nabeel St M.D. 05/12/2019 11:33 AM ECG Data Attestation: I personally reviewed and interpreted this ECG as follows: Indication: + altered mental status Rate (beats per minute): 71 Rhythm: + sinus rhythm ECG [place]: + Left axis deviation ECG ST segments: + T-wave inversions (Anterior) ECG Findings: + Other (poor quality baseline for interpretation; ST abnormality in the inferior leads; LVH) Blood Pressure Blood Pressure Findings: Normal blood pressure MDM Narrative This pt was evaluated and appeared to be altered and hallucinating. He did respond to verbal stimuli, but it was incomprehensible. Guards present did not know the pt well as he was transferred from another custodial 3 days prior. Pt was recently dx with UTI and placed on cipro at the custodial, which may be enough to effect the mental status along with multiple other meds. Pt does appear to be anticholinergic clinically. He was hydrated with NSS, given [address] head was performed and is negative. CXR is clear. Lab work reveals a normal WBC and ammonia of 30. Pt was d/w the hospitalist service for further management. Impression & Plan Altered mental status, Polypharmacy, Cirrhosis of liver Discharge Plan Visit Data *Final* Discharge Date/Time: 05/12/19 16:11 Chief Complaint: Altered Mental Status Stated Complaint: AMS ED Provider: Jessica Romero Discharge Problem: Altered mental status, Polypharmacy, Cirrhosis of liver Patient Disposition: Admitted As Inpatient Discharge Instructions Interventions: ED Discharge Assessment Last Done: 05/12/19 16:11 Discharge Problem: Altered mental status Qualifiers: Altered mental status type: unspecified Qualified Code(s): R41.82 - Altered mental status, unspecified Cirrhosis of liver Qualifiers: Hepatic cirrhosis type: unspecified hepatic cirrhosis Ascites presence: unspecified Qualified Code(s): K74.60 - Unspecified cirrhosis of liver The scribe's documentation has been prepared under my direction and personally reviewed by me in its entirety. I confirm that the note above accurately reflects all work, treatment, procedures, and medical decision making performed by me.
[2019-05-12] MEDS: LACTULOSE SYRUP 20 GM/30 ML UDC PO SCH (20:10)
[2019-05-12] MEDS: cefTRIAXone SODIUM 1,000 MG in DEXTROSE 5% 50 ML IV SCH (20:13)
[2019-05-13 07:23] LABS: Hematocrit (blood only) 30.6 % (42-52); Hemoglobin 10.3 g/dL (14.0-18.0); Mean Corpuscular Hgb Conc 33.7 g/dL (32-36); RDW Coefficient of Variation 13.4 % (11.5-14.5); RDW Standard Deviation 46.8 fL (36.4-46.3); Red Blood Count 3.22 M/uL (4.7-6.1)
[2019-05-13 07:32] LABS: INR 1.3 (0.9-1.1); Prothrombin Time 13.5 Seconds (9.0-12.0)
[2019-05-13 07:50] LABS: Mean Platelet Volume 10.4 fL (7.4-10.4); Platelet Count 52 K/uL (130-400)
[2019-05-13 08:05] LABS: Albumin Level 2.9 gm/dl (3.4-5.0); BUN Creatinine Ratio 34.5 (10-20); Calcium 8.3 mg/dl (8.5-10.1); Creatinine Clr Calc Pharmacy 66.1 ml/min; Est GFR (African American) 85.3; Est GFR (Non-African American) 73.6; Potassium 4.4 mmol/L (3.5-5.1); Total Protein 5.9 gm/dl (6.4-8.2)
[2019-05-13] MEDS: SODIUM CHLORIDE 0.9% 1000ML 1,000 ML IV SCH ×3 (08:18→20:02)
[2019-05-13] MEDS: LACTULOSE SYRUP 20 GM/30 ML UDC PO SCH (10:26)
[2019-05-13] MEDS: cefTRIAXone SODIUM 1,000 MG in DEXTROSE 5% 50 ML IV SCH (16:04)
--- NOTE | 2019-05-13 16:12 | Hospitalist Progress Note ---
Date of Service May 13, 2019 Assessment & Plan (1) Metabolic encephalopathy: This is a 59-year-old male with a PMH of hep C cirrhosis, liver cancer, CAD (s/p CABG), history of heart valve replacement, bipolar disorder and other medical problems listed below who presents from [facility] with altered mental status on 05/12/19 -on admission, patient was documented to be seen to be: Shivering, confusion, agitation, dilated pupils, muscle rigidity, and Premature ventricular contractions -patient was started on IV fluids and empirically started on ceftriaxone in case of possible urinary tract infection -since that time patient has less physical agitation symptoms -however in the AM of 05/13/19, patient speaks tangentially; Later in the day, as per nurse, patient became more oriented to place. Nurse was able to ascertain from patient that he had not been having good sleep in several days -at this time, it is unclear what are the organic causes of confusion and initial symptoms -continue telemetry monitoring -concern for serotonin syndrome documented by admitting physician on admission note. However patient does not appear to have classic symptoms of serotonin syndrome on 05/13/19 but this is still a possibility -hepatic encephalopathy can be considered, however ammonia levels are low. -admission urine analysis is normal: empiric ceftriaxone stopped on 05/13/19 -admission blood cultures are pending -no fever to date -admission urine toxicology positive for ecstasy metabolite. however, some psychiatric medications such as Bupropion can have metabolite products that are false positive for ecstasy in urine test (however Bupropion is not part of patient's outpatient medication list) -will continue IV fluids to clear out any potential toxic metabolites, diet as tolerated Elevated creatinine kinase -05/13/19 labs confirms elevated creatinine kinase of 692 U/L, continue IV fluids -trend creatinine kinase -hold statin (2) Bipolar disorder: -patient is recently transferred from out of town correctional facility to the local [facility] correctional facility -Holding Haldol, Cogentin and Zoloft for now -inpatient psychiatry following the patient -ativan prn if agitation Hypothyroidism -outpatient review of medications of Levothyroxine 50 mcg daily suggests history of hypothyroidism -TSH 2.88 is normal on 05/12/19 -since behavior not likely related, will hold off levothyroxine for now until patient mental status improves (3) CAD (coronary artery disease): (4) S/P CABG x 3: Reported history of CABG in 2016, also with reported heart valve replacement -Paperwork from [facility] [facility] states cardiac evaluation is needed -on telemetry monitoring -symptoms of confusion does not appear to be heart related at this time -no reported symptoms of chest pain -holding oral furosemide and oral metoprolol for now -IV metoprolol 5 mg IV prn if heart rate above 110 beats per minute -hold statin because of elevated creatinine kinase (5) Liver cancer: (6) Chronic hepatitis C with cirrhosis: Transaminitis -on admission AST / ALT: 218 / 144 - unclear whether this transaminitis is acute or chronic -trending AST/ALT -INR has been normal -no acute abdominal pain on exam Subjective Patient was seen and examined in AM and in evening. Medical Doctor also received updates from nurse throughout the day. In AM, patient awake but spoke very quickly in a mumbling voice and sometimes was very tangential. He did not appear to be in any acute pain or shortness of breath. Later in the day, as per nurse, patient became more oriented to place. Nurse was able to ascertain from patient that he had not been having good sleep in several days. Patient seen again in late afternoon and continues to be sleeping. Patient on room air. IV fluids running. Continues to have correctional facility officers in his room Review of Systems Review of Systems: All systems reviewed & are unremarkable except as noted in HPI & below Physical Exam Eyes: EOM intact bilaterally ENMT: external ear and nose normal, oropharynx normal Neck: normal visual inspection Respiratory: normal respiratory effort, lungs clear to auscultation Cardiovascular: Rate/Rhythm: regular rate and regular rhythm Gastrointestinal (Abdomen): normal bowel sounds, soft, nontender, no hepatosplenomegaly Musculoskeletal: Head/Neck/Chest: normocephalic and head atraumatic Neurologic: PERRL, EOMI, accommodation nl, no face palsy, no dysarthria Results & Data Vital Signs (Past 12 Hours) Vital Signs Temp Pulse Resp BP Pulse Ox 05/13/19 14:58 36.6 C 63 20 126/85 98 05/13/19 11:17 36.8 C 58 L 22 135/82 98 05/13/19 07:29 36.5 C 71 22 116/72 98
[2019-05-13] MEDS ORDERED: METOPROLOL TARTRATE 1 MG/ML VIAL IV PRN (16:37)
[2019-05-14 06:39] LABS: Hematocrit (blood only) 30.2 % (42-52); Hemoglobin 10.3 g/dL (14.0-18.0); Mean Corpuscular Hemoglobin 32.3 pg (25-34); Mean Corpuscular Hgb Conc 34.1 g/dL (32-36); Mean Corpuscular Volume 94.7 fL (80-100); RDW Coefficient of Variation 13.2 % (11.5-14.5); RDW Standard Deviation 45.7 fL (36.4-46.3); Red Blood Count 3.19 M/uL (4.7-6.1); White Blood Count 3.29 K/uL (4.8-10.8)
[2019-05-14 06:45] LABS: Mean Platelet Volume 9.6 fL (7.4-10.4); Platelet Count 45 K/uL (130-400)
[2019-05-14 07:11] LABS: Albumin Level 2.7 gm/dl (3.4-5.0); BUN Creatinine Ratio 26.4 (10-20); Calcium 8.4 mg/dl (8.5-10.1); Creatinine Clr Calc Pharmacy 72.7 ml/min; Est GFR (African American) 95.7; Est GFR (Non-African American) 82.6; Potassium 4.1 mmol/L (3.5-5.1)
[2019-05-14 07:13] LABS: Albumin Globulin Ratio 0.8 (0.9-2); Bilirubin,Total 0.7 mg/dl (0.2-1); Globulin 3.2 gm/dl (2.5-4.0); Total Protein 5.9 gm/dl (6.4-8.2)
[2019-05-14] MEDS: SODIUM CHLORIDE 0.9% 1000ML 1,000 ML IV SCH (08:03)
--- NOTE | 2019-05-14 10:22 | Psychiatric Progress Note ---
Date of Service May 14, 2019 Impression / Recommendations Impression 59-year-old male evaluated in the ED after presenting with AMS. Pt is a prisoner at [facility] and was only transferred to their facility in the last 2- 3 days. Limited history is available at this time regarding progression of symptoms or his psychiatric history. Psychiatric consultation was requested to evaluate patient for AMS. Serotonin syndrome was questioned by primary team, and while he has several symptoms (restlessness, confusion, possible hallucinations, and "shivering") these symptoms are somewhat nonspecific and may also be related to other etiology. Fortunately, patient is not demonstrating hypertension, tachycardia, hyperthermia, or other more specific signs of serotonin syndrome or NMS. Agitated catatonia was also considered, though symptoms did not improve after being provided with 1mg of lorazepam in the ED. His symptoms are not presenting as consistent with an acute destabilization of a mood disorder. Medication overdose should be considered on the differential, though it is not clear if the patient would have had access to a surplus of medications at these correctional facilities. His toxicology screening was also positive for MDMA - it is not entirely clear if this may be a false positive, but the possibility of substance use should be considered as well. At this time, delirium/encephalopathy seems the most likely explanation for his symptoms, deferring further work-up and treatment to primary team. Would recommend holding all psychotropic medications until further information on his condition can be obtained. It would likely be suggested to resume medications prior to discharge back to [facility], unless etiology of AMS is related to adverse medication reactions. Seems appropriate to offer lorazepam as needed for acute agitation, while continuing medical work-up for possible medical causes to explain AMS. We will continue to follow patient's case and are available for any additional questions or concerns. Will attempt to gather collateral information regarding the progression of these symptoms. We appreciate the opportunity to participate in the care of this patient. 05/14 -We will continue to hold the Haldol, Cogentin, and Zoloft as he appears to be clearing. In absence of manic symptoms and until we can appreciate how long and at what dose he had been on the Haldol I would not reinitiate as it does appear that it could have been contributing to his presenting symptoms. The Zoloft appears to have been a relatively new intervention when he was discontinued from Wellbutrin and, in absence of acute mood symptoms, we will continue to hold (however the Zoloft is certainly less likely to cause acutely altered mental status). -He does not appear manic or depressed and no indication for inpatient psychiatric hospitalization appreciated at this time. Interval History Chief Complaint "I have bipolar disorder". Review of Systems Notes Denies insomnia actively. Subjective Subjective Patient was seen & assessed and interval progress reviewed with treatment team. Patient seen for psychiatric follow-up today. Per floor nursing staff he is appearing a little more alert and oriented today but was still quite confused at times yesterday. We continue to hold his Haldol, Cogentin, and Zoloft. Patient is a poor historian. He seems to believe he has only been on the Haldol for a few days or a few weeks and reports primary indication with sleep. He reports a prior history of bipolar disorder. States he would like to be put back on Seconal. Does not want Seroquel "because it makes me sleep." He is disoriented and gives the year as 2100. He was able to identify the president and refrigeration service inspector. Guards in room report that he is appearing more alert today. No agitation or aggression reported. Physical Exam Psychiatric Orientation: alert and cooperative; + not oriented x 3 Eye Contact: good eye contact Motor Behavior: no psychomotor agitation Speech: no pressured speech Affect: + blunted affect Mood: no depressed mood Thought Process: + concrete thought process; no looseness of associations Hallucinations: no auditory hallucinations, no visual hallucinations and no tactile hallucinations Cognition: + recent memory not intact Insight: + limited insight Judgement: + limited judgement Vital Signs (Past 24 Hours) Last Vital Signs Temp 36.4 C L 05/14/19 03:45 Pulse 63 05/14/19 03:45 Resp 18 05/14/19 03:45 BP 104/67 05/14/19 03:45 Pulse Ox 97 05/14/19 03:45 Results & Data Laboratory Results Laboratory Results - last 24 hr 05/14/19 05/14/19 05/14/19 06:28 06:28 06:28 WBC 3.29 L RBC 3.19 L Hgb 10.3 L Hct 30.2 L MCV 94.7 MCH 32.3 MCHC 34.1 RDW Std Deviation 45.7 RDW Coeff of Sue 13.2 Plt Count 45 L MPV 9.6 Sodium 142 Potassium 4.1 Chloride 115 H Carbon Dioxide 21 Anion Gap 6.0 BUN 26 H Creatinine 1.00 Est Cr Clr Drug Dosing 72.7 Est GFR ( Amer) 95.7 Est GFR (Non-Af Amer) 82.6 BUN/Creatinine Ratio 26.4 H Glucose 94 Calcium 8.4 L Total Bilirubin 0.7 AST 158 H ALT 112 H Alkaline Phosphatase 101 Ammonia 22.0 Total Creatine Kinase 311 H Total Protein 5.9 L Albumin 2.7 L Globulin 3.2 Albumin/Globulin Ratio 0.8 L Current Inpatient Medications Current Inpatient Medications: Current Inpatient Medications Lorazepam (Ativan) 0.5 mg in 1 mls @ 1 mls/min IV Q4H PRN PRN Reason: Agitation Stop: 06/11/19 15:25 Sodium Chloride (Nss 1000ml) 1,000 mls @ 80 mls/hr IV .[id number] [facility], 1928–1983 Stop: 06/12/19 08:14 Last Admin: 05/14/19 08:03 Dose: 80 mls/hr Documented by: Lactulose (Chronulac) 20 gm PO BID FOR[facility], [facility]1983 Stop: 06/11/19 20:59 Last Admin: 05/13/19 10:26 Dose: Not Given Documented by: Metoprolol Tartrate (Lopressor) 5 mg IV Q4H PRN PRN Reason: if heart rate above 110bpm Stop: 06/12/19 16:36
--- NOTE | 2019-05-14 10:51 | Hospitalist Progress Note ---
Date of Service May 14, 2019 Assessment & Plan (1) Metabolic encephalopathy: This is a 59-year-old male with a PMH of hep C cirrhosis, liver cancer, CAD (s/p CABG), history of heart valve replacement, bipolar disorder and other medical problems listed below who presents from [facility] with altered mental status on 05/12/19 -on admission, patient was documented to be seen to be: Shivering, confusion, agitation, dilated pupils, muscle rigidity, and Premature ventricular contractions -patient was started on IV fluids and empirically started on ceftriaxone in case of possible urinary tract infection -since that time patient has less physical agitation symptoms -however in the AM of 05/13/19, patient speaks tangentially; Later in the day, as per nurse, patient became more oriented to place. Nurse was able to ascertain from patient that he had not been having good sleep in several days -at this time, it is unclear what are the organic causes of confusion and initial symptoms -continue telemetry monitoring -concern for serotonin syndrome documented by admitting physician on admission note. However patient does not appear to have classic symptoms of serotonin syndrome on 05/13/19 but this is a possibility -hepatic encephalopathy can be considered, however ammonia levels are low. -admission urine analysis is normal: empiric ceftriaxone stopped on 05/13/19 -admission blood cultures are pending -no fever to date -admission urine toxicology positive for ecstasy metabolite. however, some psychiatric medications such as Bupropion can have metabolite products that are false positive for ecstasy in urine test (Bupropion is not part of patient's outpatient medication list but patient reports he is on Wellbutrin (bupropion) in recent past. Patient denies drug use -patient's mental status generally improved with IV fluids Elevated creatinine kinase -05/13/19 labs confirms elevated creatinine kinase of 692 U/L -with IV fluids, creatinine kinase downtrended to 311 -hold statin (2) Bipolar disorder: -patient is recently transferred from out of town correctional facility to the local [facility] correctional facility -Holding Haldol, Cogentin and Zoloft for now -inpatient psychiatry following the patient -ativan prn if agitation Hypothyroidism -outpatient review of medications of Levothyroxine 50 mcg daily suggests history of hypothyroidism -TSH 2.88 is normal on 05/12/19 -since behavior not likely related, will hold off levothyroxine for now until patient mental status improves (3) CAD (coronary artery disease): (4) S/P CABG x 3: Reported history of CABG in 2016, also with reported heart valve replacement -Paperwork from [employer] states cardiac evaluation is needed -was monitored on telemetry -no reported symptoms of chest pain -will resume home dose furosemide 20 mg daily -hold statin because of elevated creatinine kinase -depending on heart rates, may decide to resume home BID metoprolol tartrate -because of no acute telemetry events to date, he may be transferred to [facility] 05[facility] (5) Liver cancer: -lactulose as tolerated -normal ammonia levels to date. INR levels normal to date (6) Chronic hepatitis C with cirrhosis: Transaminitis -on admission AST / ALT: 218 / 144 - unclear whether this transaminitis is acute or chronic -trending AST/ALT which are elevated above reference range of normal -INR has been normal Subjective Patient seen and examined this AM and today he has been carry prolonged conversation and give some past medical history. Patient denies acute pain. no shortness of breath. breathing on room air. patient oriented to time and place and person Review of Systems Review of Systems: All systems reviewed & are unremarkable except as noted in HPI & below Physical Exam Eyes: EOM intact bilaterally ENMT: external ear and nose normal, oropharynx normal Neck: normal visual inspection Respiratory: normal respiratory effort, lungs clear to auscultation Cardiovascular: Rate/Rhythm: regular rate and regular rhythm Gastrointestinal (Abdomen): normal bowel sounds, soft, nontender, no hepatosplenomegaly Musculoskeletal: Head/Neck/Chest: normocephalic and head atraumatic Neurologic: PERRL, EOMI, accommodation nl, no face palsy, no dysarthria Psychiatric: Orientation: alert, oriented to person, oriented to place, oriented to time and cooperative Results & Data Vital Signs (Past 12 Hours) Vital Signs Temp Pulse Pulse Resp BP BP Pulse Ox 05/14/19 03:45 36.4 C L 63 18 104/67 97 05/13/19 22:52 76 05/13/19 22:50 36.6 C 70 16 117/80 98
[2019-05-14] MEDS: FUROSEMIDE 20 MG TAB PO SCH (11:52)
[2019-05-14] MEDS: LACTULOSE SYRUP 20 GM/30 ML UDC PO SCH (22:00)
[2019-05-15 07:42] LABS: Albumin Level 2.8 gm/dl (3.4-5.0); BUN Creatinine Ratio 18.4 (10-20); Creatinine Clr Calc Pharmacy 75.7 ml/min; Est GFR (African American) 100.6; Est GFR (Non-African American) 86.8
[2019-05-15 07:45] LABS: Albumin Globulin Ratio 0.8 (0.9-2); Bilirubin,Total 0.7 mg/dl (0.2-1); Globulin 3.4 gm/dl (2.5-4.0); Total Protein 6.2 gm/dl (6.4-8.2)
[2019-05-15] MEDS: LACTULOSE SYRUP 20 GM/30 ML UDC PO SCH (08:53)
[2019-05-15] MEDS: FUROSEMIDE 20 MG TAB PO SCH (08:54)
[2019-05-15] MEDS ORDERED: ALUMINUM/MAGNESIUM SUSP 30 ML UDC PO STA (12:53)
[2019-05-15] MEDS ORDERED: ACETAMINOPHEN 325 MG TAB PO PRN (13:46)
[2019-05-15] MEDS ORDERED: KETOROLAC TROMETHAMINE 15 MG/ML VIAL IV PRN (13:55)
--- NOTE | 2019-05-15 13:57 | Hospitalist Progress Note ---
Date of Service May 15, 2019 Assessment & Plan (1) Metabolic encephalopathy: This is a 59-year-old male with a PMH of hep C cirrhosis, liver cancer, CAD (s/p CABG), history of heart valve replacement, bipolar disorder and other medical problems listed below who presents from [facility] with altered mental status on 05/12/19 -on admission, patient was documented to be seen to be: Shivering, confusion, agitation, dilated pupils, muscle rigidity, and Premature ventricular contractions -patient was started on IV fluids and empirically started on ceftriaxone in case of possible urinary tract infection -since that time patient has less physical agitation symptoms -however in the AM of 05/13/19, patient speaks tangentially; Later in the day, as per nurse, patient became more oriented to place. Nurse was able to ascertain from patient that he had not been having good sleep in several days -at this time, it is unclear what are the organic causes of confusion and initial symptoms -continue telemetry monitoring -concern for serotonin syndrome documented by admitting physician on admission note. However patient does not appear to have classic symptoms of serotonin syndrome on 05/13/19 but this is a possibility -hepatic encephalopathy can be considered, however ammonia levels are low. -admission urine analysis is normal: empiric ceftriaxone stopped on 05/13/19 -admission blood cultures are no growth to date -no fever to date -admission urine toxicology positive for ecstasy metabolite. however, some psychiatric medications such as Bupropion can have metabolite products that are false positive for ecstasy in urine test (Bupropion is not part of patient's outpatient medication list but patient reports he is on Wellbutrin (bupropion) in recent past. Patient denies drug use -patient's mental status generally improved with IV fluids during this hospital stay -patient's mental status appears normal and appropriate currently Elevated creatinine kinase -05/13/19 labs confirms elevated creatinine kinase of 692 U/L -with IV fluids, creatinine kinase downtrended to 311 -on oral hydration, the creatinine kinase normalized by 05/15/19 -restart stain on 05/15/19 (2) Bipolar disorder: -patient is recently transferred from out of town correctional facility [facility] -Holding Haldol, Cogentin and Zoloft for now -inpatient psychiatry following the patient. request psychiatry to re-assess Hypothyroidism -outpatient review of medications of Levothyroxine 50 mcg daily suggests history of hypothyroidism -TSH 2.88 is normal on 05/12/19 -can restart levothyroxine on 05/16/19 AM (3) Liver cancer: -lactulose as tolerated -normal ammonia levels to date. INR levels normal to date -patient reports he has stage IV hepatocellular carcinoma -because of abdominal pain as the new acute complaints on 05/15/19, will obtain X ray abdomen and CT scan abdomen/pelvis to clarify the extent of the malignancy (4) Chronic hepatitis C with cirrhosis: Transaminitis -on admission AST / ALT: 218 / 144 - unclear whether this transaminitis is acute or chronic -trending AST/ALT which are elevated above reference range of normal but generally stabilized with AST around 150s and ALT around 110s -INR has been normal -check current Hepatitis status, patient agrees for hepatitis A and B and C labs (5) CAD (coronary artery disease): (6) S/P CABG x 3: Reported history of CABG in 2016, also with reported heart valve replacement -Paperwork from [facility] [facility] states cardiac evaluation is needed -was monitored on telemetry -no reported symptoms of chest pain -will resume home dose furosemide 20 mg daily -resume statin -resume metoprolol tartrate 12.5 mg BID -because of no acute telemetry events to date, he was transferred to [facility] 05[facility]19 DVT prophylaxis: SCDs Subjective Patient's mental status is very good today. At this point in time he is clearly back a normal baseline. However, since he has been more active, he has more complaints of abdomen discomfort. Patient abdomen when sitting up accentuates hepatosplenomegaly. No vomiting. blood pressure and heart rate continues to be stable. Patient mentioned that in the past he was due for MRI abdomen. Will initiate workup with abdomen X ray and abdomen/pelvis CT scan Review of Systems Review of Systems: All systems reviewed & are unremarkable except as noted in HPI & below Physical Exam Eyes: EOM intact bilaterally ENMT: external ear and nose normal, oropharynx normal Neck: normal visual inspection Respiratory: normal respiratory effort, lungs clear to auscultation Cardiovascular: Rate/Rhythm: regular rate and regular rhythm Gastrointestinal (Abdomen): Inspection/Auscultation: normal bowel sounds Percussion/Palpation: + hepatosplenomegaly abdomen is somewhat hard when sitting up Musculoskeletal: Head/Neck/Chest: normocephalic and head atraumatic Neurologic: PERRL, EOMI, accommodation nl, no face palsy, no dysarthria Psychiatric: Orientation: alert, oriented to person, oriented to place, oriented to time and cooperative Results & Data Vital Signs (Past 12 Hours) Vital Signs Temp Pulse Resp BP Pulse Ox 05/15/19 07:21 36.7 C 77 18 112/78 97
--- NOTE | 2019-05-15 14:27 | XRay Report ---
XR KUB/Abdomen 1 view CLINICAL HISTORY: abdominal pain pain. Nausea. COMPARISON STUDY: No previous studies for comparison. FINDINGS: Air-filled nondistended colon. Air-filled small bowel. No evidence for distention. No secondary signs of free air. IMPRESSION: Mild nonobstructive ileus. The above report was generated using voice recognition software. It may contain grammatical, syntax or spelling errors. Electronically signed by: Seth Sams M.D. 05/15/2019 2:26 PM
[2019-05-15] MEDS ORDERED: IOVERSOL 100ml IV PRN (14:38)
--- NOTE | 2019-05-15 14:52 | CT Scan Report ---
CT abd pelvis IV con only CT DOSE: 341.82 mGy.cm HISTORY: Pain liver cancer history, abdominal pain TECHNIQUE: Multiaxial CT images of the abdomen and pelvis were performed following the use of intrave nous contrast. A dose lowering technique was utilized adhering to the principles of ALARA. COMPARISON STUDY: None. FINDINGS: Extremely difficult study to interpret given the patient's history of hepatic carcinoma and treatment at other institutions. No prior studies of a type are available for comparison. There is a patchy parenchymal infiltrate in the right base. Similar but less prominent findings are seen at the left base. There is trace amount pleural fluid at both lung bases. Nodular appearing liver surface suggesting a component of hepatic cirrhosis. Mild abdominal ascites. Moderate gastric distention. The inferior right hepatic lobe contains a 2.5 x 2.0 cm complex nodule. Gallbladder slightly contract ed. Findings consistent with multiple slightly distended somewhat thickened loops of small bowel. Thi s suggests a generalized enteritis. Mild amount of ascites within the paracolic gutters. The colonic bowel pattern is considered nonobstr uctive. No evidence for free air or pneumatosis. The bladder is in the midline. Pelvic ascites is present. Th ere are several nonspecific inguinal nodes. Several para-aortic nodes are also present all less than 1 cm. Left testis is somewhat superiorly positioned. IMPRESSION: 1. Somewhat limited interpretation due to the complete absence of prior studies. 2. Probable hepatic cirrhosis with a 2.5 cm complex nodule at the residual inferior right hepatic lob e. Significance of this nodule is uncertain given lack of prior studies. 3. Abdominal and pelvic ascites considered mild/moderate. 4. Moderate gastric distention. 6. Small bowel enteritis. 7. Several small scattered nodes throughout the abdominal pelvic and inguinal region of uncertain sig nificance The above report was generated using voice recognition software. It may contain grammatical, syntax or spelling errors. Electronically signed by: Seth Sams M.D. 05/15/2019 2:50 PM
[2019-05-15] MEDS: SODIUM CHLORIDE 0.9% 1000ML 1,000 ML IV SCH (15:02)
[2019-05-15] MEDS: ATORVASTATIN 40 MG TAB PO SCH (15:04)
[2019-05-15] MEDS: METOPROLOL TARTRATE 25 MG TAB PO SCH ×2 (15:04→20:46)
[2019-05-15 15:19] LABS: Hepatitis B Surface Antigen Neg (Neg)
[2019-05-15 15:28] LABS: Hepatitis B Surface Ab Quant 11.17 mIU/mL (>or=10mIU/mL Immune); Hepatitis B Surface Antibody Immune
[2019-05-15 16:04] LABS: Act87 Hepatitis C IgG Screen Pos (Neg)
[2019-05-15] MEDS: POLYETHYLENE (MIRALAX) 17 GM PACK PO SCH (16:05)
[2019-05-15] MEDS: SENNA 8.6 MG TAB PO SCH (16:06)
[2019-05-16] MEDS: LEVOTHYROXINE SODIUM 50 MCG TABLET PO SCH (05:35)
[2019-05-16] MEDS: SODIUM CHLORIDE 0.9% 1000ML 1,000 ML IV SCH (06:44)
[2019-05-16 07:37] LABS: Mean Corpuscular Hgb Conc 34.4 g/dL (32-36); Mean Platelet Volume 10.8 fL (7.4-10.4); Platelet Count 68 K/uL (130-400); RDW Coefficient of Variation 13.3 % (11.5-14.5); RDW Standard Deviation 45.8 fL (36.4-46.3); Red Blood Count 3.44 M/uL (4.7-6.1); White Blood Count 4.09 K/uL (4.8-10.8)
[2019-05-16 07:39] LABS: INR 1.3 (0.9-1.1); Partial Thromboplastin Ratio 1.1; Partial Thromboplastin Time 29.5 Seconds (21.0-31.0); Prothrombin Time 13.1 Seconds (9.0-12.0)
[2019-05-16 07:42] LABS: Basophils # (auto) 0.02 K/uL (0-0.2); Basophils % (auto) 0.5 %; Eosinophils % (auto) 4.9 %; Immature Granulocytes # (auto) 0.01 K/uL (0.00-0.02); Immature Granulocytes % (auto) 0.2 %; Monocytes # (auto) 0.66 K/uL (0.11-0.59); Monocytes % (auto) 16.1 %; Neutrophils % (auto) 56.3 %
[2019-05-16 07:49] LABS: Albumin Level 2.6 gm/dl (3.4-5.0); BUN Creatinine Ratio 15.4 (10-20); Calcium 8.2 mg/dl (8.5-10.1); Creatinine Clr Calc Pharmacy 77.3 ml/min; Est GFR (African American) 103.2; Magnesium 1.8 mg/dl (1.8-2.4); Potassium 4.6 mmol/L (3.5-5.1)
[2019-05-16 07:52] LABS: Albumin Globulin Ratio 0.8 (0.9-2); Bilirubin,Total 0.9 mg/dl (0.2-1); Globulin 3.2 gm/dl (2.5-4.0); Total Protein 5.8 gm/dl (6.4-8.2)
[2019-05-16] MEDS ORDERED: MAGNESIUM SULFATE / D5W 1 GM/100 ML BAG IV ONE (08:00)
[2019-05-16] MEDS: SENNA 8.6 MG TAB PO SCH (08:02)
[2019-05-16] MEDS: METOPROLOL TARTRATE 25 MG TAB PO SCH ×2 (08:02→20:16)
[2019-05-16] MEDS: ATORVASTATIN 40 MG TAB PO SCH (08:03)
[2019-05-16] MEDS: MAGNESIUM OXIDE 400 MG TAB PO SCH (08:26)
[2019-05-16] MEDS: RIFAXIMIN 200 MG TABLET PO SCH ×3 (08:26→20:17)
[2019-05-16] MEDS: FUROSEMIDE 20 MG TAB PO SCH (08:27)
[2019-05-16] MEDS: POLYETHYLENE (MIRALAX) 17 GM PACK PO SCH ×2 (08:27→20:19)
--- NOTE | 2019-05-16 10:14 | Psychiatric Progress Note ---
Date of Service May 16, 2019 Impression / Recommendations Impression 59-year-old male evaluated in the ED after presenting with AMS. Pt is a prisoner at [facility] and was only transferred to their facility in the last 2- 3 days. Limited history is available at this time regarding progression of symptoms or his psychiatric history. Psychiatric consultation was requested to evaluate patient for AMS. Serotonin syndrome was questioned by primary team, and while he has several symptoms (restlessness, confusion, possible hallucinations, and "shivering") these symptoms are somewhat nonspecific and may also be related to other etiology. Fortunately, patient is not demonstrating hypertension, tachycardia, hyperthermia, or other more specific signs of serotonin syndrome or NMS. Agitated catatonia was also considered, though symptoms did not improve after being provided with 1mg of lorazepam in the ED. His symptoms are not presenting as consistent with an acute destabilization of a mood disorder. Medication overdose should be considered on the differential, though it is not clear if the patient would have had access to a surplus of medications at these correctional facilities. His toxicology screening was also positive for MDMA - it is not entirely clear if this may be a false positive, but the possibility of substance use should be considered as well. At this time, delirium/encephalopathy seems the most likely explanation for his symptoms, deferring further work-up and treatment to primary team. Would recommend holding all psychotropic medications until further information on his condition can be obtained. It would likely be suggested to resume medications prior to discharge back to [facility], unless etiology of AMS is related to adverse medication reactions. Seems appropriate to offer lorazepam as needed for acute agitation, while continuing medical work-up for possible medical causes to explain AMS. We will continue to follow patient's case and are available for any additional questions or concerns. Will attempt to gather collateral information regarding the progression of these symptoms. We appreciate the opportunity to participate in the care of this patient. 05/14 -We will continue to hold the Haldol, Cogentin, and Zoloft as he appears to be clearing. In absence of manic symptoms and until we can appreciate how long and at what dose he had been on the Haldol I would not reinitiate as it does appear that it could have been contributing to his presenting symptoms. The Zoloft appears to have been a relatively new intervention when he was discontinued from Wellbutrin and, in absence of acute mood symptoms, we will continue to hold (however the Zoloft is certainly less likely to cause acutely altered mental status). -He does not appear manic or depressed and no indication for inpatient psychiatric hospitalization appreciated at this time. 05/16 -At this point mental status has cleared significantly. He still does not endorse compelling symptoms of bipolar disorder historically and does not appear hypomanic,, manic, or mixed such that he would require acute mood stabilization. He should not be restarted on haldol or cogentin and will elect to try to utilize a gently sedating antidepressant instead of restarting the zoloft. He describes a history of depression, anxiety, and sleep disturbance today. We discussed some gentle treatment options and associated risks and benefits. Ultimately he agreed to trial low-dose Remeron and will place an order for 7.5 mg p.o. nightly for sleep augmentation, gentle antidepressant effect, and anxiety. Low-dose will hopefully pose minimal additional burden to his hepatic functioning. He reports h/o vivid dreams on this medication briefly in past which will require monitoring. Guards report patient will have access to alf psychiatrist tomorrow for follow-up. Longitudinally they will need to watch for signs of problematic activation on unopposed antidepressant therapy. Interval History Chief Complaint "I am a little clearer". Review of Systems Notes Denies SI/HI. Complains of unrestful sleep. Denies history of ritualized behaviors Subjective Subjective Psychiatric reassessment requested by primary team as it sounds that he will soon be transferred back to alf. Mental status has cleared significantly in last 2 days. Recommendation requested for psychotropic medications on discharge. Patient reports he has not been treated with antipsychotics longitudinally. He reports only a fairly recent diagnosis of bipolar disorder but describes emotional problems as a younger man. "May be due to trauma?" He recalls being treated with Luvox and Wellbutrin in combination for several years with good effect for mood and "being particular." He reports the Luvox was discontinued due to cost. It appears he was not on any mood stabilizing medication while on that combination. He complains of chronic poor sleep and worries he will get a little "bluesy" off antidepressant. He believes it has been several years since he has been off of an antidepressant. He denies any thoughts of harm to himself or others. Physical Exam Psychiatric Orientation: alert, oriented to time and cooperative Apperance: appeared stated age Eye Contact: good eye contact Motor Behavior: no abnormal motor movements Speech: normal rate/rhythm/volume of speech Affect: euthymic affect ok Thought Process: no thought blocking and no looseness of associations Thought Content: reality based without delusions Suicidal Thoughts: denies suicidal thoughts Homicidal Thoughts: denies homicidal thoughts Hallucinations: no auditory hallucinations and no visual hallucinations (Describes what sounds like some illusory experiences in the hospital but not overtly hallucinatory) Cognition: attention grossly intact Insight: + fair insight Judgement: + fair judgement Vital Signs (Past 24 Hours) Last Vital Signs Temp 37 C 05/16/19 07:38 Pulse 62 05/16/19 07:38 Resp 17 05/16/19 07:38 BP 98/66 L 05/16/19 07:38 Pulse Ox 97 05/16/19 07:38 Results & Data Laboratory Results Laboratory Results - last 24 hr 05/15/19 05/16/19 05/16/19 14:18 07:09 07:09 WBC 4.09 L RBC 3.44 L Hgb 11.0 L Hct 32.0 L MCV 93.0 MCH 32.0 MCHC 34.4 RDW Std Deviation 45.8 RDW Coeff of Sue 13.3 Plt Count 68 L MPV 10.8 H Immature Gran % (Auto) 0.2 Neut % (Auto) 56.3 Lymph % (Auto) 22.0 Bertie % (Auto) 16.1 Eos % (Auto) 4.9 Baso % (Auto) 0.5 Immature Gran # (Auto) 0.01 Neut # (Auto) 2.30 Lymph # (Auto) 0.90 L Bertie # (Auto) 0.66 H Eos # (Auto) 0.20 Baso # (Auto) 0.02 PT 13.1 H INR 1.3 H APTT 29.5 PTT Ratio 1.1 Sodium Potassium Chloride Carbon Dioxide Anion Gap BUN Creatinine Est Cr Clr Drug Dosing Est GFR ( Amer) Est GFR (Non-Af Amer) BUN/Creatinine Ratio Glucose Calcium Magnesium Total Bilirubin AST ALT Alkaline Phosphatase Ammonia Total Creatine Kinase Total Protein Albumin Globulin Albumin/Globulin Ratio Hep Bs Antigen Neg Hep Bs Antibody Immune Hep Bs Antibody, Quant 11.17 Hepatitis C Ab Screen Pos A 05/16/19 05/16/19 07:09 07:09 WBC RBC Hgb Hct MCV MCH MCHC RDW Std Deviation RDW Coeff of Sue Plt Count MPV Immature Gran % (Auto) Neut % (Auto) Lymph % (Auto) Bertie % (Auto) Eos % (Auto) Baso % (Auto) Immature Gran # (Auto) Neut # (Auto) Lymph # (Auto) Bertie # (Auto) Eos # (Auto) Baso # (Auto) PT INR APTT PTT Ratio Sodium 140 Potassium 4.6 Chloride 112 H Carbon Dioxide 23 Anion Gap 5.0 BUN 14 Creatinine 0.94 Est Cr Clr Drug Dosing 77.3 Est GFR ( Amer) 103.2 Est GFR (Non-Af Amer) 89.0 BUN/Creatinine Ratio 15.4 Glucose 89 Calcium 8.2 L Magnesium 1.8 Total Bilirubin 0.9 AST 118 H ALT 100 H Alkaline Phosphatase 99 Ammonia 33.9 H Total Creatine Kinase 114 Total Protein 5.8 L Albumin 2.6 L Globulin 3.2 Albumin/Globulin Ratio 0.8 L Hep Bs Antigen Hep Bs Antibody Hep Bs Antibody, Quant Hepatitis C Ab Screen Current Inpatient Medications Current Inpatient Medications: Current Inpatient Medications Acetaminophen (Tylenol) 325 mg PO ONCE PRN PRN Reason: Pain Stop: 06/14/19 13:45 Atorvastatin Cal[facility]) [facility] [place] [place]: 06/14/19 12:59 Last Admin: 05/16/19 08:03 Dose: 80 mg Documented by: Furosemide (Lasix) 20 mg PO QAM [facility] Stop: 06/13/19 10:59 Last Admin: 05/16/19 08:27 Dose: Not Given Documented by: Ioversol (Optiray 320 100ml) 94 ml IV ONCE PRN PRN Reason: Interaction Checking Stop: 05/19/19 14:37 Last Admin: 05/15/19 14:38 Dose: 94 ml Documented by: Ketorolac Tromethamine (Toradol) 15 mg IV Q6H PRN PRN Reason: Pain Stop: 05/20/19 13:54 Last Admin: 05/15/19 15:02 Dose: 15 mg Documented by: Lactulose (Chronulac) 20 gm PO BID [facility] Stop: 06/11/19 20:59 Last Admin: 05/15/19 08:53 Dose: 20 gm Documented by: Levothyroxine Sodium (Synthroid) 50 mcg PO DAILYBB [facility] Stop: 06/15/19 06:29 Last Admin: 05/16/19 05:35 Dose: Not Given Documented by: Magnesium Oxide (Mag-Ox) 400 mg PO QAM [facility] Stop: 06/15/19 08:59 Last Admin: 05/16/19 08:26 Dose: 400 mg Documented by: Metoprolol Tartrate (Lopressor) 12.5 mg PO BID [facility] Stop: 06/14/19 12:59 Last Admin: 05/16/19 08:02 Dose: Not Given Documented by: Polyethylene Glycol (Miralax Powder Packet) 17 gm PO Q12 [facility] Stop: 06/14/19 15:29 Last Admin: 05/16/19 08:27 Dose: Not Given Documented by: Rifaximin (Xifaxan) 200 mg PO TID [facility] Stop: 06/15/19 08:59 Last Admin: 05/16/19 08:26 Dose: 200 mg Documented by: Sennosides (Senokot) 8.6 mg PO QAM [facility] Stop: 06/14/19 15:14 Last Admin: 05/16/19 08:02 Dose: 8.6 mg Documented by:
--- NOTE | 2019-05-16 16:26 | Hospitalist Progress Note ---
Date of Service May 16, 2019 Assessment & Plan (1) Metabolic encephalopathy: This is a 59-year-old male with a PMH of hep C cirrhosis, liver cancer, CAD (s/p CABG), history of heart valve replacement, bipolar disorder and other medical problems listed below who presents from [facility] with altered mental status on 05/12/19 (patient is recently transferred from [facility] to the local [facility] on 05/06/19. (This [facility] with [facility] [phone] and further review of outpatient documents with hospital vocational case manager) -on admission, patient was documented to be seen to be: Shivering, confusion, agitation, dilated pupils, muscle rigidity, and Premature ventricular contractions -patient was started on IV fluids and empirically started on ceftriaxone in case of possible urinary tract infection -since that time patient has less physical agitation symptoms -however in the AM of 05/13/19, patient speaks tangentially; Later in the day, as per nurse, patient became more oriented to place. Nurse was able to ascertain from patient that he had not been having good sleep in several days -at this time, it is unclear what are the organic causes of confusion and initial symptoms -continue telemetry monitoring -concern for serotonin syndrome documented by admitting physician on admission note. However patient does not appear to have classic symptoms of serotonin syndrome on 05/13/19 -hepatic encephalopathy can be considered, however ammonia levels are low. -admission urine analysis is normal: empiric ceftriaxone stopped on 05/13/19 -admission blood cultures are no growth to date -no fever to date -admission urine toxicology positive for ecstasy metabolite. however, some psychiatric medications such as Bupropion can have metabolite products that are false positive for ecstasy in urine test (Bupropion is not part of patient's outpatient medication list but patient reports he is on Wellbutrin (bupropion) in recent past. Patient denies drug use -patient's mental status generally improved with IV fluids during this hospital stay -patient's mental status appears normal and appropriate currently Elevated creatinine kinase -05/13/19 labs confirms elevated creatinine kinase of 692 U/L -with IV fluids, creatinine kinase downtrended to 311 -on oral hydration, the creatinine kinase normalized by 05/15/19 -restart statin on 05/15/19 (2) Bipolar disorder: reported history of Bipolar disorder -attempts to verify patient's outpatient psychiatric medications; (patient did not get any Haldol, Cogentin and Zoloft as inpatient) -as of inpatient psychiatry, patient may be started on trial of low-dose Remeron, 7.5 mg p.o. nightly, for sleep augmentation, gentle antidepressant effect, and anxiety. start this medication on 05/16/19 -discussed with [facility] nurse on 05/16/19, that the psychiatry doctor at the correctional facility will resume work duties on Friday05/17/19 and plans to discharge patient to correctional facility on 05/17/19 if no acute events Hypothyroidism -outpatient review of medications of Levothyroxine 50 mcg daily suggests history of hypothyroidism -TSH 2.88 is normal on 05/12/19 -restart levothyroxine on 05/16/19 AM (3) Liver cancer: -lactulose as tolerated -normal ammonia levels to date. INR levels normal to date -patient reports he has stage IV cirrhosis and that liver cancer is not metastatic -because of abdominal pain as the new acute complaints on 05/15/19, X ray abdomen and CT scan abdomen/pelvis were ordered. CT abdomen 1. Somewhat limited interpretation due to the complete absence of prior studies. 2. Probable hepatic cirrhosis with a 2.5 cm complex nodule at the residual inferior right hepatic lobe. Significance of this nodule is uncertain given lack of prior studies. 3. Abdominal and pelvic ascites considered mild/moderate. 4. Moderate gastric distention. 6. Small bowel enteritis. 7. Several small scattered nodes throughout the abdominal pelvic and inguinal region of uncertain significance -lactulose was changed to rifaximin and increased bowel movement medications were ordered on 05/15/19 to help patient pass the gas and make more bowel movement; continue (4) Chronic hepatitis C with cirrhosis: Transaminitis -on admission AST / ALT: 218 / 144 - unclear whether this transaminitis is acute or chronic -trending AST/ALT which are elevated above reference range of normal but generally stabilized with AST around 150s and ALT around 110s -INR has been normal -checked current Hepatitis status as hepatitis C positive (5) CAD (coronary artery disease): (6) S/P CABG x 3: Reported history of CABG in 2016, also with reported heart valve replacement -Paperwork from correctional facility states cardiac evaluation is needed -was monitored on telemetry; because of no acute telemetry events found, he was transferred [facility] -no reported symptoms of chest pain -continue furosemide 20 mg daily -continue statin -continue metoprolol tartrate 12.5 mg BID DVT prophylaxis: SCDs Subjective Patient passing more flatus today. he reports abdomen feels less uncomfortable. no vomiting. no chest pain. no shortness of breath. results of current workup discussed with patient and he reports that he has diagnosis of stage IV cirrhosis and not stage IV liver cancer. He does acknowledge liver cancer presence in past workups but denies history of metastasis Review of Systems Review of Systems: All systems reviewed & are unremarkable except as noted in HPI & below Physical Exam Eyes: EOM intact bilaterally ENMT: external ear and nose normal, oropharynx normal Neck: normal visual inspection Respiratory: normal respiratory effort, lungs clear to auscultation Cardiovascular: Rate/Rhythm: regular rate and regular rhythm Gastrointestinal (Abdomen): Inspection/Auscultation: normal bowel sounds Percussion/Palpation: + hepatomegaly Musculoskeletal: Head/Neck/Chest: normocephalic and head atraumatic Neurologic: PERRL, EOMI, accommodation nl, no face palsy, no dysarthria Psychiatric: Orientation: alert, oriented to person, oriented to place, oriented to time and cooperative Results & Data Vital Signs (Past 12 Hours) Vital Signs Temp Pulse Resp BP Pulse Ox 05/16/19 15:52 36.7 C 60 18 116/75 99 05/16/19 07:38 37 C 62 17 98/66 L 97
[2019-05-16] MEDS ORDERED: MIRTAZAPINE TAB 15 MG TAB PO SCH (21:00)
--- NOTE | 2019-05-16 21:20 | XRay Report ---
XR KUB/Abdomen 1 view CLINICAL HISTORY: ABDOMINAL PAIN, DISTENSION COMPARISON STUDY: 05/15/2019 FINDINGS: There is mild gaseous prominence of the colon similar to the preceding study. There is a mi ld to moderate amount stool within the rectal vault. There is no conventional radiographic evidence o f high-grade bowel obstruction. IMPRESSION: Mild gaseous prominence of the colon. No conventional radiographic evidence of bowel obs truction Electronically signed by: Damián Munoz M.D. 05/16/2019 9:18 PM
[2019-05-16] MEDS ORDERED: ALUMINUM/MAGNESIUM/SIMETH (MAALOX MAX) 30 ML UDC PO STA (23:02)
[2019-05-17] MEDS: LEVOTHYROXINE SODIUM 50 MCG TABLET PO SCH (06:02)
[2019-05-17 07:23] VITALS: BP 133/88; TEMP 97.7; O2SAT 97
[2019-05-17 08:15] VITALS: PULSE 64
[2019-05-17] MEDS: FUROSEMIDE 20 MG TAB PO SCH (08:17)
[2019-05-17] MEDS: POLYETHYLENE (MIRALAX) 17 GM PACK PO SCH (08:17)
[2019-05-17] MEDS: RIFAXIMIN 200 MG TABLET PO SCH (08:17)
[2019-05-17] MEDS: SENNA 8.6 MG TAB PO SCH (08:18)
[2019-05-17] MEDS: METOPROLOL TARTRATE 25 MG TAB PO SCH (08:18)
[2019-05-17] MEDS: ATORVASTATIN 40 MG TAB PO SCH (08:19)
[2019-05-17] MEDS: MAGNESIUM OXIDE 400 MG TAB PO SCH (08:19)
--- NOTE | 2019-05-17 11:20 | Hospitalist Progress Note ---
Date of Service May 17, 2019 Assessment & Plan (1) Metabolic encephalopathy: Metabolic encephalopathy (altered mental status, polypharmacy is suspected) This is a 59-year-old male with a PMH of hep C cirrhosis, liver cancer, CAD (s/p CABG), history of heart valve replacement, bipolar disorder and other medical problems listed below who presents from [facility] with altered mental status on 05/12/19 (patient is recently transferred from [facility] to the local [facility] on 05/06/19. (This was verified with correctional facility [phone] and further review of outpatient documents with hospital manager case management) -on admission, patient was documented to be seen to be: Shivering, confusion, agitation, dilated pupils, muscle rigidity, and Premature ventricular contractions -patient was started on IV fluids and empirically started on ceftriaxone in case of possible urinary tract infection -since that time patient has less physical agitation symptoms -however in the AM of 05/13/19, patient speaks tangentially; Later in the day, as per nurse, patient became more oriented to place. Nurse was able to ascertain from patient that he had not been having good sleep in several days -at this time, it is unclear what are the organic causes of confusion and initial symptoms -continue telemetry monitoring -concern for serotonin syndrome documented by admitting physician on admission note. However patient does not appear to have classic symptoms of serotonin syndrome on 05/13/19 -hepatic encephalopathy can be considered, however ammonia levels are low. -admission urine analysis is normal: empiric ceftriaxone stopped on 05/13/19 -admission blood cultures are no growth to date -no fever to date -admission urine toxicology positive for ecstasy metabolite. however, some psychiatric medications such as Bupropion can have metabolite products that are false positive for ecstasy in urine test (Bupropion is not part of patient's outpatient medication list but patient reports he is on Wellbutrin (bupropion) in recent past. Patient denies drug use -patient's mental status generally improved with IV fluids during this hospital stay -patient's mental status appears normal and appropriate currently Elevated creatinine kinase (resolved) -05/13/19 labs confirms elevated creatinine kinase of 692 U/L -with IV fluids, creatinine kinase downtrended to 311 -on oral hydration, the creatinine kinase normalized by 05/15/19 -restart statin on 05/15/19 (2) Bipolar disorder: reported history of Bipolar disorder -attempts to verify patient's outpatient psychiatric medications; (patient did not get any Haldol, Cogentin and Zoloft as inpatient) -as of inpatient psychiatry, patient may be started on trial of low-dose Remeron, 7.5 mg p.o. nightly, for sleep augmentation, gentle antidepressant effect, and anxiety. start this medication on 05/16/19 -discussed with [facility] nurse on 05/16/19, that the psychiatry doctor at the correctional facility will resume work duties on Friday05/17/19 and plans to discharge patient to correctional facility on 05/17/19 if no acute events Hypothyroidism -outpatient review of medications of Levothyroxine 50 mcg daily suggests history of hypothyroidism -TSH 2.88 is normal on 05/12/19 -restart levothyroxine 50 mcg daily on 05/16/19 AM (3) Liver cancer: -lactulose as tolerated -normal ammonia levels to date. INR levels normal to date -patient reports he has stage IV cirrhosis and that liver cancer is not metastatic -because of abdominal pain as the new acute complaints on 05/15/19, X ray abdomen and CT scan abdomen/pelvis were ordered. CT abdomen 1. Somewhat limited interpretation due to the complete absence of prior studies. 2. Probable hepatic cirrhosis with a 2.5 cm complex nodule at the residual inferior right hepatic lobe. Significance of this nodule is uncertain given lack of prior studies. 3. Abdominal and pelvic ascites considered mild/moderate. 4. Moderate gastric distention. 6. Small bowel enteritis. 7. Several small scattered nodes throughout the abdominal pelvic and inguinal region of uncertain significance -lactulose was changed to rifaximin and increased bowel movement medications were ordered on 05/15/19 to help patient pass the gas and make more bowel movement; continue (4) Chronic hepatitis C with cirrhosis: Transaminitis -on admission AST / ALT: 218 / 144 - unclear whether this transaminitis is acute or chronic -trending AST/ALT which are elevated above reference range of normal but generally stabilized with AST around 150s and ALT around 110s -INR has been normal -checked current Hepatitis status as hepatitis C positive (5) CAD (coronary artery disease): (6) S/P CABG x 3: Reported history of CABG in 2016, also with reported heart valve replacement -Paperwork from correctional facility states cardiac evaluation is needed -was monitored on telemetry; because of no acute telemetry events found, he was transferred to [facility] 05/[facility] -no reported symptoms of chest pain -continue furosemide 20 mg daily -continue statin -continue metoprolol tartrate 12.5 mg BID based on inpatient heart rates Disposition: Patient was evaluated in the hospital for metabolic encephalopathy (altered mental status). acute etiology of altered mental status is unclear. There may be a role of polypharmacy on review of patient's prior hospitalization medications. Patient to be discharge to correctional facility [facility]. Patient will have imaging on CD of abdomen imaging in regards to liver cancer workup. Patient is to be discharged with prescriptions for metoprolol tartrate 12.5 mg BID, mirtazapine 7.5 mg qhs, sennokot daily, Xifaxan (rifaximin) 200 mg TID (in place of lactulose) Patient can continue atorvastatin 80 mg daily, furosemide 20 mg daily, levothyroxine 50 mcg daily Patient's other home medications are discontinued from medical reconciliation list Discharge Diagnosis: Metabolic encephalopathy (altered mental status, polypharmacy is suspected), Elevated creatinine kinase (resolved), Chronic hepatitis C with cirrhosis, Transaminitis, history of Bipolar disorder, liver cancer Subjective No acute events with first dose of mirtazapine overnight. Patient comfortable. no acute abdominal pain. Patient passing flatus. Abdomen is soft. Patient denies vomiting. No chest pain. No shortness of breath Review of Systems Review of Systems: All systems reviewed & are unremarkable except as noted in HPI & below Physical Exam Eyes: EOM intact bilaterally ENMT: external ear and nose normal, oropharynx normal Neck: normal visual inspection Respiratory: normal respiratory effort, lungs clear to auscultation Cardiovascular: Rate/Rhythm: regular rate and regular rhythm Gastrointestinal (Abdomen): normal bowel sounds, soft, nontender, no hepatosplenomegaly Inspection/Auscultation: normal bowel sounds Percussion/Palpation: + hepatomegaly Musculoskeletal: Head/Neck/Chest: normocephalic and head atraumatic Neurologic: PERRL, EOMI, accommodation nl, no face palsy, no dysarthria Psychiatric: Orientation: alert, oriented to person, oriented to place, oriented to time and cooperative Results & Data Vital Signs (Past 12 Hours) Vital Signs Temp Pulse Resp BP Pulse Ox 05/17/19 08:15 64 05/17/19 07:22 36.5 C 58 L 18 133/88 97
--- NOTE | 2019-05-17 11:23 | Discharge Summary ---
Date of Service May 17, 2019 Admission HPI Per Admitting Provider Rudolph Brarera is a 59-year-old male evaluated in the ED after presenting from [facility] with reports of AMS. Pt is anticipated to be admitted medically for further work-up and treatment of AMS. Psychiatric consultation was requested to evaluate patient for possible serotonin syndrome. Patient's case and available information was reviewed by consulting provider at time of consult request. It is reported that patient has been altered since his transfer to [facility] from [facility]. Reports of "dystonia, dilated pupils, rigidity, and shivering" were reported, with concern for possible adverse medication reaction. Medication list of haloperidol 10mg qHS, benztropine 2mg qHS, and sertraline 50mg daily was reviewed. It is unclear if there have been any recent changes to his medication. Pt is also being treated for a UTI at this time. Any additional history is rather limited at this time. He was given 1mg of lorazepam in the ED, which reportedly made him "more lethargic." Pt was evaluated by this provider in the ED prior to his transfer to the medical floor. Pt initially presented as alert and pleasant, recognizing this provider's presence in the room and greeting her appropriately. Pt was asked how he is doing, and responded with mumbling and rambling of unintelligible speech. Pt was asked numerous questions, but was unable to provider productive responses. He would ramble while questions were being asked, and later in conversation seemed to be less aware of our conversation. He remained intermittently engaged in our conversation, but was unable to provide any personal history. Limited supplemental information was gathered from the correctional officers present in his room. They state the patient was transferred to their facility from [facility] in the past 2-3 days. He presented to their facility as altered, with no clear history provided to explain this. They report he has been in a private cell, and was placed on suicide watch with q15 minute observation checks after he reported seeing 4 other individuals and his dog in the cell with him. Pt did not verbalize any suicidal or homicidal statements at the facility, and reportedly did not demonstrate any self-harm behaviors. They state the patient would not have had access to large amounts of medication while in their facility, but they cannot speak to how medications were provided at his previous facility. They state that he is being treated for a UTI, but there was also a reported history of "bipolar disorder, and maybe schizophrenia?" Pt is unable to provide any insight regarding his current psychiatric needs or history of treatment/diagnoses. Admission Exam Per Admitting Provider General Appearance: WD/WN, vitals as above, thin, lethargic but intermittently opening eyes and speaking incoherently, shivering, appears thin, chronically ill Head: normocephalic, atraumatic Eyes: pupils dilated with sluggish response to light bilaterally, conjunctivae normal, anicteric sclerae ENT: external ear and nose normal, oropharynx with dry mucous membranes Neck: trachea midline, no thyromegaly normal visual inspection Respiratory: normal respiratory effort, lungs clear to auscultation, no wheeze, rales, rhonchi. Normal insp/exp effort, no accessory muscle use Cardiovascular: regular rate, rhythm, no murmur, normal peripheral pulses. Vessels: no JVD or carotid bruit Chest: normal inspection of chest Abdomen/GI: normal bowel sounds, soft, nontender, no hepatosplenomegaly Extremities/Musculoskelatal: no cyanosis or clubbing, extremities motor strength 5/5 Neurologic: difficult to fully assess due to patient's lethargy and dystonic movements. Moves all extremities spontaneously +rigid body posture Psychiatric: A+O to person, not to time, place or situation. Incoherently speaking intermittently Skin: no rashes, normal color, warm/dry Principal Diagnosis Metabolic encephalopathy (altered mental status, polypharmacy is suspected), Elevated creatinine kinase (resolved), Chronic hepatitis C with cirrhosis, Transaminitis, history of Bipolar disorder, liver cancer Discharge Exam Eyes EOM intact bilaterally ENMT external ear and nose normal, oropharynx normal Neck normal visual inspection Respiratory normal respiratory effort, lungs clear to auscultation Cardiovascular Rate/Rhythm: regular rate and regular rhythm Gastrointestinal (Abdomen) Inspection/Auscultation: normal bowel sounds Percussion/Palpation: abdomen soft Musculoskeletal Head/Neck/Chest: normocephalic and head atraumatic Neurologic PERRL, EOMI, accommodation nl, no face palsy, no dysarthria Psychiatric Orientation: alert, oriented to person, oriented to place, oriented to time and cooperative Discharge Data Allergies Allergy/AdvReac Type Severity Reaction Status Date / Time No Known Allergies Allergy Unverified 05/12/19 11:58 Consultations 11/27/19 15:03 ED Decision to Admit Stat 05/12/19 15:32 Consult Psychiatry Routine 05/12/19 16:52 Consult Case Management - Discharge Planning Routine 05/17/19 10:56 Burn CD for patient Stat Ordered Studies 05/12/19 11:06 CT head/brain wo con Stat 05/15/19 14:04 CT abd pelvis IV con only Routine Hospital Course (1) Metabolic encephalopathy: Metabolic encephalopathy (altered mental status, polypharmacy is suspected) This is a 59-year-old male with a PMH of hep C cirrhosis, liver cancer, CAD (s/p CABG), history of heart valve replacement, bipolar disorder and other medical problems listed below who presents from [facility] with altered mental status on 05/12/19 ([facility] on 05/06/19. (This was verified with correctional facility [phone] and further review of outpatient documents with hospital disease case manager rn) -on admission, patient was documented to be seen to be: Shivering, confusion, agitation, dilated pupils, muscle rigidity, and Premature ventricular contractions -patient was started on IV fluids and empirically started on ceftriaxone in case of possible urinary tract infection -since that time patient has less physical agitation symptoms -however in the AM of 05/13/19, patient speaks tangentially; Later in the day, as per nurse, patient became more oriented to place. Nurse was able to ascertain from patient that he had not been having good sleep in several days -at this time, it is unclear what are the organic causes of confusion and initial symptoms -continue telemetry monitoring -concern for serotonin syndrome documented by admitting physician on admission note. However patient does not appear to have classic symptoms of serotonin syndrome on 05/13/19 -hepatic encephalopathy can be considered, however ammonia levels are low. -admission urine analysis is normal: empiric ceftriaxone stopped on 05/13/19 -admission blood cultures are no growth to date -no fever to date -admission urine toxicology positive for ecstasy metabolite. however, some psychiatric medications such as Bupropion can have metabolite products that are false positive for ecstasy in urine test (Bupropion is not part of patient's outpatient medication list but patient reports he is on Wellbutrin (bupropion) in recent past. Patient denies drug use -patient's mental status generally improved with IV fluids during this hospital stay -patient's mental status appears normal and appropriate currently Elevated creatinine kinase (resolved) -05/13/19 labs confirms elevated creatinine kinase of 692 U/L -with IV fluids, creatinine kinase downtrended to 311 -on oral hydration, the creatinine kinase normalized by 05/15/19 -restart statin on 05/15/19 (2) Bipolar disorder: reported history of Bipolar disorder -attempts to verify patient's outpatient psychiatric medications; (patient did not get any Haldol, Cogentin and Zoloft as inpatient) -as of inpatient psychiatry, patient may be started on trial of low-dose Remeron, 7.5 mg p.o. nightly, for sleep augmentation, gentle antidepressant effect, and anxiety. start this medication on 05/16/19 -discussed with [facility] nurse on 05/16/19, that the psychiatry doctor at the correctional facility will resume work duties on Friday05/17/19 and plans to discharge patient to correctional facility on 05/17/19 if no acute events Hypothyroidism -outpatient review of medications of Levothyroxine 50 mcg daily suggests history of hypothyroidism -TSH 2.88 is normal on 05/12/19 -restart levothyroxine 50 mcg daily on 05/16/19 AM (3) Liver cancer: -lactulose as tolerated -normal ammonia levels to date. INR levels normal to date -patient reports he has stage IV cirrhosis and that liver cancer is not metastatic -because of abdominal pain as the new acute complaints on 05/15/19, X ray abdomen and CT scan abdomen/pelvis were ordered. CT abdomen 1. Somewhat limited interpretation due to the complete absence of prior studies. 2. Probable hepatic cirrhosis with a 2.5 cm complex nodule at the residual inferior right hepatic lobe. Significance of this nodule is uncertain given lack of prior studies. 3. Abdominal and pelvic ascites considered mild/moderate. 4. Moderate gastric distention. 6. Small bowel enteritis. 7. Several small scattered nodes throughout the abdominal pelvic and inguinal region of uncertain significance -lactulose was changed to rifaximin and increased bowel movement medications were ordered on 05/15/19 to help patient pass the gas and make more bowel movement; continue (4) Chronic hepatitis C with cirrhosis: Transaminitis -on admission AST / ALT: 218 / 144 - unclear whether this transaminitis is acute or chronic -trending AST/ALT which are elevated above reference range of normal but generally stabilized with AST around 150s and ALT around 110s -INR has been normal -checked current Hepatitis status as hepatitis C positive (5) CAD (coronary artery disease): (6) S/P CABG x 3: Reported history of CABG in 2016, also with reported heart valve replacement -Paperwork from correctional facility states cardiac evaluation is needed -was monitored on telemetry; because of no acute telemetry events found, he was transferred to [facility] [place] on 05/14/19 -no reported symptoms of chest pain -continue furosemide 20 mg daily -continue statin -continue metoprolol tartrate 12.5 mg BID based on inpatient heart rates Disposition: Patient was evaluated in the hospital for metabolic encephalopathy (altered mental status). acute etiology of altered mental status is unclear. There may be a role of polypharmacy on review of patient's prior hospitalization medications. Patient to be discharge to correctional facility [facility]. Patient will have imaging on CD of abdomen imaging in regards to liver cancer workup. Patient is to be discharged with prescriptions for metoprolol tartrate 12.5 mg BID, mirtazapine 7.5 mg qhs, sennokot daily, Xifaxan (rifaximin) 200 mg TID (in place of lactulose) Patient can continue atorvastatin 80 mg daily, furosemide 20 mg daily, levothyroxine 50 mcg daily Patient's other home medications are discontinued from medical reconciliation list Discharge Diagnosis: Metabolic encephalopathy (altered mental status, polypharmacy is suspected), Elevated creatinine kinase (resolved), Chronic hepatitis C with cirrhosis, Transaminitis, history of Bipolar disorder, liver cancer Total Time Total Time Spent Total Time Spent (In Minutes): 40 minutes Total Time Includes: Examination of the Patient, Discharge Planning, Medication Reconciliation and Communication With Other Providers Discharge Plan Discharge Items Patient Disposition: [facility] Facility Reason For Visit: AMS, CONCERN FOR SEROTONIN SYNDROME, UTI Discharge Diagnosis: Metabolic encephalopathy (altered mental status, polypharmacy is suspected), Elevated creatinine kinase (resolved), Chronic hepatitis C with cirrhosis, Transaminitis, history of Bipolar disorder, liver cancer Condition on Discharge: Good Activity: Per Instructions section Non-emergency contact: Primary Care Provider and Psychiatrist Call non-emergency contact if: you have any medication questions Follow-up/Referrals: Evert MOHAMUD [Non-Staff] - Diet: Low Sodium (2gm) Addtl Attending Provider Instructions: Patient was evaluated in the hospital for metabolic encephalopathy (altered mental status). acute etiology of altered mental status is unclear. There may be a role of polypharmacy on review of patient's prior hospitalization medications. Patient to be discharge to correctional facility [facility]. Patient will have imaging on CD of abdomen imaging in regards to liver cancer workup. Patient is to be discharged with prescriptions for metoprolol tartrate 12.5 mg BID, mirtazapine 7.5 mg qhs, sennokot daily, Xifaxan (rifaximin) 200 mg TID (in place of lactulose) Patient can continue atorvastatin 80 mg daily, furosemide 20 mg daily, levothyroxine 50 mcg daily Patient's other home medications are discontinued from medical reconciliation list Pending Studies at Discharge: No Stand-Alone Forms: My [facility] Skilled Items Patient informed of condition?: Yes Discharge Level of Care: Other Communicable Disease: No Discharge Prognosis: Stable Lines: None Urinary Catheter: No Medications and DC Order Prescriptions: New Xifaxan 200 mg Tablet 200 mg PO TID 30 Days Qty: 90 RF: 0 sennosides [Senokot] 8.6 mg Tablet 8.6 mg PO QAM 30 Days Qty: 30 RF: 0 mirtazapine 15 mg Tablet 7.5 mg PO HS 30 Days Qty: 15 RF: 0 metoprolol tartrate 25 mg Tablet 12.5 mg PO BID 30 Days Qty: 30 RF: 0 Continued atorvastatin 80 mg Tablet 80 mg PO DAILY RF: 0 levothyroxine 50 mcg Tablet 50 mcg PO DAILY RF: 0 furosemide [Lasix] 20 mg Tablet 20 mg PO QAM RF: 0 Discontinued meloxicam 15 mg Tablet 15 mg PO DAILY RF: 0 hydroxyzine pamoate 50 mg Capsule 50 mg PO TID PRN (Reason: Itching) RF: 0 ciprofloxacin HCl [Cipro] 500 mg Tablet 500 mg PO BID RF: 0 haloperidol 10 mg Tablet 10 mg PO HS RF: 0 benztropine 2 mg Tablet 2 mg PO HS RF: 0 sertraline 50 mg Tablet 50 mg PO DAILY RF: 0 metoprolol tartrate 25 mg Tablet 12.5 mg PO BID RF: 0 lactulose 20 gram/30 mL Solution 20 g PO BID RF: 0 Admission Data Admit Date/Time: 05/12/19 15:27 Attending Provider: Dante Alexandre Admit Provider: Davis Doan Primary Care Provider: [facility] Other Providers: Davis Doan ; Wally Mendez ; Lorie Cordova ; Elmo Santos ; Izaiah Ghosh ; Dawood Olivares ; Laura Venegas ; Mendel Smiley ; Antoinette Rodriges ; Rayne Anderson ; Kristi Wright ; Charisse Whitt ; Kiran Garrett I. ; Fabiola Frances ; Kayla Ca ; Melissa Rincon ; Torres Castillo. Other Interventions: Infection Control - Act 87 Hepatitis C Last Done: 05/17/19 10:48
== END 2019-05-17 13:07 | DRG 72 ==
LOC: ED 10:39 → 2S 15:27 → SUATTDRO 15:27 → 2S 16:11 → 2W 05-14 12:58